=== PATIENT | female | born 1935 | race Caucasian/White ===

== ENCOUNTER 2017-04-25 07:56 | Emergency (ER) | payer MEDICARE, OTHER ==
[~2017-04-25 07:56] MED LIST: ALPR0.5T6 PO; ASPI-482 PO; BISO5TAB2 PO; CILO50TA10 PO; CRESTOR5 MG PO; CYAN10002 IJ; ERGO500027 PO; EZET10TA18 PO; FERR-36 PO; GABA-586 PO; OMEP20TA8 PO; TELM80TA PO; TRAM50TA PO; ZOLP12.52 PO
[2017-04-25] MEDS ORDERED: ONDANSETRON ODT 4 MG TAB.RAPDIS PO ONE (08:30)
[2017-04-25] MEDS ORDERED: cloNIDine HCL 0.1 MG TABLET PO ONE (08:30)
[2017-04-25 08:33] LABS: BASO % 1 % (0-3); EOS # 0.1 x10^3/uL (0.0-0.7); EOS % 1 % (0-3); HEMATOCRIT 42.6 % (36.0-47.0); HEMOGLOBIN 14.5 g/dL (12.0-15.5); LYMPH # 1.5 x10^3/uL (1.0-4.8); LYMPH % 15 % (24-48); MEAN CORPUSCULAR HEMOGLOBIN 33 pg (25-35); MEAN CORPUSCULAR HGB CONC 34 g/dL (31-37); MEAN CORPUSCULAR VOLUME 97 fL (79-100); MONO # 0.7 x10^3/uL (0.0-1.1); MONO % 7 % (0-9); NEUT # 7.8 x10^3uL (1.8-7.7); NEUT % 77 % (31-73); PLATELET COUNT 155 x10^3/uL (140-400); RED BLOOD COUNT 4.39 x10^6/uL (3.50-5.40); RED CELL DISTRIBUTION WIDTH 14.2 % (11.5-14.5)
[2017-04-25 08:41] LABS: ALBUMIN 3.4 g/dL (3.4-5.0); CALCIUM 9.5 mg/dL (8.5-10.1); CREATININE 1.7 mg/dL (0.6-1.0); GFR 28.8; POTASSIUM 4.9 mmol/L (3.5-5.1); TOTAL BILIRUBIN 0.3 mg/dL (0.2-1.0); TOTAL PROTEIN 6.8 g/dL (6.4-8.2)
--- NOTE | 2017-04-25 08:41 | RAD ---
Head CT without contrast History:Headache, dizziness, hypertension Technique: Noncontrast CT imaging was acquired of the head. RS Compliance Statement: One or more of the following individualized dose reduction techniques were utilized for this examination: 1. Automated exposure control 2. Adjustment of the mA and/or kV according to patient size 3. Use of iterative reconstruction technique Comparison: 06/05/2016 Findings: Ventricular size is stable, within normal limits. There is mild supratentorial involutional change as seen previously. There is patchy mild ill-defined low-density of the supratentorial parenchyma bilaterally as seen previously.There is no significant intra-axial mass-effect, midline shift, or abnormal extra-axial fluid collection. There is no evidence of acute parenchymal or extraaxial hemorrhage. The visualized paranasal sinuses and mastoid air cells are aerated. No significant osseous abnormality is identified. There is atherosclerotic calcification of the carotid siphons bilaterally, also left intradural vertebral artery. Impression: 1. No acute intracranial abnormality is identified.
[2017-04-25 09:02] LABS: BACTERIA,URINE 0 /HPF (0-FEW); BILIRUBIN,URINE NEG (NEG); CLARITY,URINE CLEAR; COLOR,URINE YELLOW; GLUCOSE,URINE NEG (NEG); NITRITE,URINE NEG (NEG); RBC,URINE RARE /HPF (0-2); SQUAMOUS EPITHELIAL CELL,UR MOD /LPF; UROBILINOGEN,URINE 0.2 mg/dL (0.2 mg/dL); WBC,URINE RARE /HPF (0-4)
[2017-04-25] MEDS ORDERED: hydrALAZINE 20 MG/ML VIAL. ONE (09:11)
[2017-04-25] MEDS ORDERED: hydrALAZINE 20 MG/ML VIAL. IV ONE (09:15)
[2017-04-25 09:33] VITALS: BP 128/55
--- NOTE | 2017-04-25 09:45 | ED.ADGEN ---
Past History Past Medical History: CAD, CHF, Diabetes, Hypertension, [place], Vascular Disease, Other Past Surgical History: Cholecystectomy, Hysterectomy, Pacemaker, Other Smoking: Cigarettes, Greater than 1 pack/day Alcohol Use: None Drug Use: None Adult General Chief Complaint Chief Complaint Headache, nausea HPI HPI Patient is a 88-year-old female with history of hypertension, CVA, CAD and congestive heart failure presents with mild posterior headache and nausea. Symptoms began yesterday. Patient states her blood pressure is elevated 200/110 yesterday. Patient recently prescribed hydralazine at [facility] , but states she has not taken the medication due to concerns that they may impact her kidneys. Patient has been compliant with her remaining cardiac and blood pressure medications. Patient denies blurred vision, impaired speech, neck pain, extremity weakness or loss of sensation. Denies chest pain palpitations shortness of air. No abdominal pain. No dysuria. No fever chills or sweats. No other acute symptoms or complaints. Patient is a current smoker. Review of Systems Review of Systems ROS as per HPI. All other ROS are negative. All other systems were reviewed and found to be within normal limits, except as documented in this note. Current Medications Current Medications Current Medications Medications (Trade) Dose Ordered Sig/Alanna Start Time Stop Time Status Last Admin Dose Admin Clonidine HCl (Catapres) 0.1 mg 1X ONCE 04/25/17 08:30 04/25/17 08:31 DC 04/25/17 08:43 0.1 MG Hydralazine HCl (Apresoline) 20 mg 1X ONCE 04/25/17 09:15 04/25/17 09:16 DC 04/25/17 09:13 20 MG Ondansetron HCl (Zofran Odt) 4 mg 1X ONCE 04/25/17 08:30 04/25/17 08:31 DC 04/25/17 08:43 4 MG Allergies Allergies Allergies Coded Allergies Type Severity Reaction Last Updated Verified codeine Allergy Intermediate rash 05/27/16 Yes Physical Exam Physical Exam Constitutional: Well developed, well nourished, no acute distress, non-toxic appearance. [] HENT: Normocephalic, atraumatic, bilateral external ears normal, oropharynx moist, no oral exudates, nose normal. [] Eyes: PERRLA, EOMI, conjunctiva normal, no discharge. [] Neck: Normal range of motion, no tenderness, supple, no stridor. [] Cardiovascular:Heart rate regular rhythm, no murmur [] Lungs & Thorax: Respirations nonlabored, mildly diminished bilaterally. Otherwise clear.[] Abdomen: Bowel sounds normal, soft, no tenderness, no masses, no pulsatile masses. [] Skin: Warm, dry, no erythema, no rash. [] Back: No tenderness. [] Extremities: No tenderness, no cyanosis, no clubbing, ROM intact, no edema. [] Neurologic: Alert and oriented X 3, normal motor function, normal sensory function, no focal deficits noted. [] Psychologic: Affect normal, judgement normal, mood normal. [] Current Patient Data Vital Signs Vital Signs Date Time Temp Pulse Resp B/P (MAP) Pulse Ox O2 Delivery O2 Flow Rate FiO2 04/25/17 09:13 66 230/98 04/25/17 08:00 98.5 20 95 Room Air Lab Results Laboratory Tests Test 04/25/17 08:09 04/25/17 08:40 White Blood Count 10.0 x10^3/uL (4.0-11.0) Red Blood Count 4.39 x10^6/uL (3.50-5.40) Hemoglobin 14.5 g/dL (12.0-15.5) Hematocrit 42.6 % (36.0-47.0) Mean Corpuscular Volume 97 fL (79-100) Mean Corpuscular Hemoglobin 33 pg (25-35) Mean Corpuscular Hemoglobin Concent 34 g/dL (31-37) Red Cell Distribution Width 14.2 % (11.5-14.5) Platelet Count 155 x10^3/uL (140-400) Neutrophils (%) (Auto) 77 % (31-73) H Lymphocytes (%) (Auto) 15 % (24-48) L Monocytes (%) (Auto) 7 % (0-9) Eosinophils (%) (Auto) 1 % (0-3) Basophils (%) (Auto) 1 % (0-3) Neutrophils # (Auto) 7.8 x10^3uL (1.8-7.7) H Lymphocytes # (Auto) 1.5 x10^3/uL (1.0-4.8) Monocytes # (Auto) 0.7 x10^3/uL (0.0-1.1) Eosinophils # (Auto) 0.1 x10^3/uL (0.0-0.7) Basophils # (Auto) 0.0 x10^3/uL (0.0-0.2) Sodium Level 145 mmol/L (136-145) Potassium Level 4.9 mmol/L (3.5-5.1) Chloride Level 106 mmol/L (98-107) Carbon Dioxide Level 29 mmol/L (21-32) Anion Gap 10 (6-14) Blood Urea Nitrogen 31 mg/dL (7-20) H Creatinine 1.7 mg/dL (0.6-1.0) H Estimated GFR (Cockcroft-Gault) 28.8 BUN/Creatinine Ratio 18 (6-20) Glucose Level 175 mg/dL (70-99) H Calcium Level 9.5 mg/dL (8.5-10.1) Total Bilirubin 0.3 mg/dL (0.2-1.0) Aspartate Amino Transferase (AST) 15 U/L (15-37) Alanine Aminotransferase (ALT) 20 U/L (14-59) Alkaline Phosphatase 82 U/L (46-116) Creatine Kinase 32 U/L (26-192) Troponin I Quantitative < 0.017 ng/mL (0-0.055) Total Protein 6.8 g/dL (6.4-8.2) Albumin 3.4 g/dL (3.4-5.0) Albumin/Globulin Ratio 1.0 (1.0-1.7) Urine Collection Type Unknown Urine Color Yellow Urine Clarity Clear Urine pH 6.0 Urine Specific [place] 1.025 Urine Protein >100 mg/dl (NEG-TRACE) Urine Glucose (UA) Neg mg/dL (NEG) Urine Ketones (Stick) Neg mg/dL (NEG) Urine Blood Neg (NEG) Urine Nitrite Neg (NEG) Urine Bilirubin Neg (NEG) Urine Urobilinogen Dipstick 0.2 mg/dL (0.2 mg/dL) Urine Leukocyte Esterase Neg (NEG) Urine RBC Rare /HPF (0-2) Urine WBC Rare /HPF (0-4) Urine Squamous Epithelial Cells Mod /LPF Urine Bacteria 0 /HPF (0-FEW) Urine Mucus Slight /LPF EKG EKG [EKG: Normal sinus rhythm, occasional ectopy, no acute ST-T wave changes.] Radiology/Procedures Radiology/Procedures [CT head: No acute intracranial abnormality per radiology report] Course & Med Decision Making Course & Med Decision Making Pertinent Labs and Imaging studies reviewed. (See chart for details) [Patient's blood pressure headache and nausea resolved with treatment. Patient instructed to resume blood pressure medication as previously prescribed upon returning home. Patient to take next dose of blood pressure medication with exception of hydralazine at noon. Patient further instructed to follow-up with her PCP in 1-2 days for further blood pressure management.] Final Impression Final Impression [#1 accelerated hypertension #2 headache] Problems: Dragon Disclaimer Dragon Disclaimer This electronic medical record was generated, in whole or in part, using a voice recognition dictation system. BRITTANEY RON DO Apr 25, 2017 09:45
[2017-04-25] MEDS ORDERED: IOHEXOL 300 MG/ML 75 ML VIAL. IV ONE (10:30)
--- NOTE | 2017-04-25 17:02 | EKG ---
[address] [address] Test Date: 2017-04-25 Test Time: 08:21:03 Pat Name: CHLOÉ CARDOSO Department: Room: Gender: F [employer]: ARUN : 1935 Requested By: BRITTANEY RON Order Number: [id number] Reading MD: Measurements Intervals Stamps Rate: 70 P: 33 ID: [id number] QRS: -39 QRSD: 128 T: -19 QT: 406 QTc: 441 Interpretive Statements SINUS RHYTHM ABNORMAL LEFT AXIS DEVIATION LEFT ANTERIOR FASCICULAR BLOCK RIGHT BUNDLE BRANCH BLOCK BIFASCICULAR BLOCK QRS(T) CONTOUR ABNORMALITY CONSIDER ANTEROSEPTAL MYOCARDIAL DAMAGE ABNORMAL ECG RI6.01 Unconfirmed report No previous ECG available for comparison
== END 2017-04-25 09:55 | disposition home or self-care (01) ==
LOC: ER 07:56
DX: I11.0 Hypertensive heart disease with heart failure (principal); R51 Headache; I50.9 Heart failure, unspecified; I25.10 Atherosclerotic heart disease of native coronary artery without angina pectoris; E11.9 Type 2 diabetes mellitus without complications; I25.2 Old myocardial infarction; F17.210 Nicotine dependence, cigarettes, uncomplicated; Z86.73 Personal history of transient ischemic attack (TIA), and cerebral infarction without residual deficits; Z95.0 Presence of cardiac pacemaker; Z88.5 Allergy status to narcotic agent
CPT/HCPCS: 36415; 70450; 80053; 81001; 82550; 84484; 85025; 93005; 96374; 99285; J0360; Q0162

== ENCOUNTER 2017-05-13 13:49 | Inpatient (IN) | payer MEDICARE, OTHER ==
[~2017-05-13] VITALS: Ht 160 cm; Wt 79.6 kg
--- NOTE | 2017-05-13 14:41 | PHYS DOC ---
Past History Past Medical History: CAD, CHF, Diabetes, Hypertension, [place], Vascular Disease, Other Past Surgical History: Cholecystectomy, Hysterectomy, Pacemaker, Other Smoking: Cigarettes, Greater than 1 pack/day Alcohol Use: None Drug Use: None Adult General Chief Complaint Chief Complaint: MECHANICAL FALL HPI HPI Patient is a 82 year old female who presents with complaint of bilateral foot and ankle pain. Patient states that she suffered a fall earlier today. Patient states that she has been having trouble with numbness and burning in her bilateral lower extremities. The patient has history of type 2 diabetes mellitus and history of neuropathy. Patient is currently on gabapentin therapy at home and states she has not missed any doses. The patient states that it felt like her feet suddenly gave out on her and caused her to fall. Patient states that she struck the right side of her head on the bathroom door as she fell. Patient denies any loss of consciousness. Patient states that she has had history of intracranial hemorrhage due to a prior fall. Patient denies any chest pain or abdominal pain. The patient states that she did hit her left forearm but states that she has a small skin tear and does not feel that she seriously injured her forearm. Patient's main concern are her ankles and feet. Patient states that there has been swelling in this area and she is concerned she may have broken something. Review of Systems Review of Systems Constitutional: Denies fever or chills [] Eyes: Denies change in visual acuity, redness, or eye pain [] HENT: Denies nasal congestion or sore throat [] Respiratory: Denies cough or shortness of breath [] Cardiovascular: Denies chest pain or edema[] GI: Denies abdominal pain, nausea, vomiting, bloody stools or diarrhea [] : Denies dysuria or hematuria [] Musculoskeletal: Bilateral ankle and foot pain[] Integument: Denies rash or skin lesions [] Neurologic: Chronic numbness to bilateral lower extremities, denies headache[] All other systems were reviewed and found to be within normal limits, except as documented in this note. Allergies Allergies Allergies Coded Allergies Type Severity Reaction Last Updated Verified codeine Allergy Intermediate rash 05/27/16 Yes Physical Exam Physical Exam Constitutional: Alert, obese, afebrile, appears mild to moderate discomfort.[] HENT: Normocephalic, atraumatic, bilateral external ears normal, oropharynx moist, no oral exudates, nose normal. [] Eyes: PERRLA, EOMI, conjunctiva normal, no discharge. [] Neck: Normal range of motion, no tenderness, supple, no stridor. [] Cardiovascular:Heart rate regular rhythm, no murmur [] Lungs & Thorax: Bilateral breath sounds clear to auscultation [] Abdomen: Bowel sounds normal, soft, no tenderness, no masses, no pulsatile masses. [] Skin: Warm, dry, no erythema, no rash. [] Back: No tenderness, no CVA tenderness. [] Extremities: 1 cm skin tear to the dorsum of left forearm, mild soft tissue swelling to bilateral ankles near bilateral malleoli, no bony tenderness, pain with dorsiflexion bilaterally.[] Neurologic: Alert and oriented X 3, normal motor function, normal sensory function, no focal deficits noted. [] Current Patient Data Vital Signs Vital Signs Date Time Temp Pulse Resp B/P (MAP) Pulse Ox O2 Delivery O2 Flow Rate FiO2 05/13/17 13:49 98.4 70 18 98 Room Air EKG EKG Not performed[] Radiology/Procedures Radiology/[place] [address] IMAGING REPORT Signed PATIENT: CHLOÉ CARDOSO ACCOUNT: [id number] : 1935 LOCATION: ER AGE: 82 SEX: F EXAM [id number] STATUS: REG ER ORD. PHYSICIAN: СЕРГЕЙ MONTIEL MD REASON: fall, bilateral ankle pain PROCEDURE: ANKLE BILAT 3V; FOOT BILAT 3V Bilateral feet, 6 views, 05/13/2017: History: Fall, pain There is patchy bony demineralization. There are mild degenerative changes at the left first MTP joint and at the midfoot level. There is a minimal hallux valgus deformity. No acute fracture or dislocation is identified. On the right, there is mild hallux valgus deformity with degenerative change at the first MTP joint. There are mild degenerative changes at the midfoot level. No right foot fracture or dislocation is identified. There is generalized subcutaneous edema about both feet and ankles. IMPRESSION: 1. Moderate degenerative changes as described above. 2. No acute bony abnormality is detected. 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 There is a recent fracture of the distal right fibula along the superior aspect of the medial malleolus, without significant displacement at the fracture site. No other fracture or dislocation is identified. There is moderate diffuse soft tissue swelling about both ankles. IMPRESSION: Acute fracture of the right lateral malleolus. DICTATED AND SIGNED BY: DINO JOSE MD DATE: 05/13/17 4435 CC: СЕРГЕЙ MONTIEL MD; [place]ABEL [place] ~ [place] [address] IMAGING REPORT Signed PATIENT: CHLOÉ CARDOSO ACCOUNT: [id number] : 1935 LOCATION: ER AGE: 82 SEX: F EXAM STATUS: REG ER ORD. PHYSICIAN: СЕРГЕЙ MONTIEL MD REASON: fall, head injury PROCEDURE: CT HEAD WO CONTRAST CT of the head without contrast, 05/13/2017: History: Fall, head injury Comparison is made to a study from 04/25/2017. There is mild cerebral atrophy. The ventricles are within normal limits in size. There is no shift of the midline structures. There is no evidence of acute intracranial hemorrhage or mass effect. Minimal faint deep white matter lucencies are present bilaterally compatible with chronic ischemic change. There is mild scalp swelling in the right frontal region. No underlying bony abnormality is detected. IMPRESSION: 1. Chronic findings as described above. 2. No acute intracranial abnormality is detected. PQRS Compliance Statement: One or more of the following individualized dose reduction techniques were utilized for this examination: 1. Automated exposure control 2. Adjustment of the mA and/or kV according to patient size 3. Use of iterative reconstruction technique DICTATED AND SIGNED BY: DINO JOSE MD DATE: 05/13/17 0094 CC: СЕРГЕЙ MONTIEL MD; ISABEL CERRATO ~ [] Course & Med Decision Making Course & Med Decision Making Pertinent Labs and Imaging studies reviewed. (See chart for details) The patient's head CT was negative for acute intracranial injury. Patient's x- ray showed a right fibula fracture. The patient has chronic neuropathy and is of advanced age with difficulty in ambulation which will be complicated by the patient's current injury. Though the injury is likely nonsurgical, the patient will still have difficulty being able to care for herself in her current state. After discussion with the patient and patient's family, we have agreed that admission to the hospital would be appropriate at this time. I spoke with Dr. Coker who accepted care patient in hospital. Dragon Disclaimer Dragon Disclaimer This electronic medical record was generated, in whole or in part, using a voice recognition dictation system. Departure Departure: Impression: Primary Impression: Right fibular fracture Additional Impressions: Neuropathy Unable to ambulate Disposition: ADMITTED INPATIENT Admitting Physician: Kimberly Coker Condition: STABLE Referrals: ISABEL CERRATO (PCP) Problem Qualifiers Primary Impression: Right fibular fracture Encounter type: initial encounter Fibula location: lateral malleolus Fracture type: closed Fracture alignment: nondisplaced Qualified Codes: S82.64XA - Nondisplaced fracture of lateral malleolus of right fibula, initial encounter for closed fracture СЕРГЕЙ MONTIEL MD May 13, 2017 14:41
[2017-05-13] MEDS ORDERED: HYDROcodone/APAP 7.5/325MG 1 TAB TABLET PO ONE (15:00)
--- NOTE | 2017-05-13 15:01 | RAD ---
CT of the head without contrast, 05/13/2017: History: Fall, head injury Comparison is made to a study from 04/25/2017. There is mild cerebral atrophy. The ventricles are within normal limits in size. There is no shift of the midline structures. There is no evidence of acute intracranial hemorrhage or mass effect. Minimal faint deep white matter lucencies are present bilaterally compatible with chronic ischemic change. There is mild scalp swelling in the right frontal region. No underlying bony abnormality is detected. IMPRESSION: 1. Chronic findings as described above. 2. No acute intracranial abnormality is detected. PQRS Compliance Statement: One or more of the following individualized dose reduction techniques were utilized for this examination: 1. Automated exposure control 2. Adjustment of the mA and/or kV according to patient size 3. Use of iterative reconstruction technique
--- NOTE | 2017-05-13 15:16 | RAD ---
Bilateral feet, 6 views, 05/13/2017: History: Fall, pain There is patchy bony demineralization. There are mild degenerative changes at the left first MTP joint and at the midfoot level. There is a minimal hallux valgus deformity. No acute fracture or dislocation is identified. On the right, there is mild hallux valgus deformity with degenerative change at the first MTP joint. There are mild degenerative changes at the midfoot level. No right foot fracture or dislocation is identified. There is generalized subcutaneous edema about both feet and ankles. IMPRESSION: 1. Moderate degenerative changes as described above. 2. No acute bony abnormality is detected. 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 There is a recent fracture of the distal right fibula along the superior aspect of the medial malleolus, without significant displacement at the fracture site. No other fracture or dislocation is identified. There is moderate diffuse soft tissue swelling about both ankles. IMPRESSION: Acute fracture of the right lateral malleolus.
[2017-05-13] MEDS ORDERED: ACETAMINOPHEN 325 MG TABLET PO PRN (16:00)
[2017-05-13] MEDS ORDERED: IV NORMAL SALINE 1,000ML 1,000 ML IV SCH (16:00)
[2017-05-13] MEDS ORDERED: ONDANSETRON PF 4 MG/2 ML VIAL. IV PRN (16:00)
[2017-05-13 18:00] VITALS: BP 92/56
[2017-05-13] MEDS ORDERED: HYDR100T24 PO (19:52)
[2017-05-13] MEDS ORDERED: CHOL10003 PO (19:52)
[2017-05-13] MEDS ORDERED: INSU100I32 SQ (19:52)
[2017-05-13] MEDS ORDERED: CARV25TA2 PO (19:52)
[2017-05-13] MEDS ORDERED: VIT1TABL32 PO (19:52)
[2017-05-13] MEDS ORDERED: TELM40TA PO (19:52)
[2017-05-13] MEDS ORDERED: ZOLP5TAB PO (19:52)
[2017-05-13] MEDS ORDERED: OMEP40CA5 PO (19:52)
[2017-05-13 19:53] VITALS: BP 130/67
[2017-05-13] MEDS ORDERED: TRAJENTA PO (19:59)
[2017-05-13] MEDS: oxyCODONE/APAP 5/325 1 TAB TABLET PO PRN (20:48)
[2017-05-13] MEDS: ATORVASTATIN CALCIUM 20 MG TABLET PO SCH (20:48)
[2017-05-13] MEDS: GABAPENTIN 300 MG CAPSULE. PO SCH (20:49)
[2017-05-13] MEDS: CHOLECALCIFEROL (VITAMIN D3) 1,000 UNIT TABLET PO SCH (20:49)
[2017-05-13] MEDS: HEPARIN PF for SUB-Q USE 5,000 UNIT/0.5 ML VIAL. SQ SCH (20:53)
[2017-05-13] MEDS: INSULIN DETEMIR 300 UNITS/3 ML INSULN.PEN. SQ SCH (20:53)
[2017-05-13 22:45] VITALS: BP 145/56
[2017-05-14] MEDS: oxyCODONE/APAP 5/325 1 TAB TABLET PO PRN ×3 (02:58→21:31)
[2017-05-14 05:34] VITALS: BP 126/56
--- NOTE | 2017-05-14 06:38 | PDOC1 ---
History of Present Illness Reason for Visit: Ankle pain History of Present Illness Pt states she was in her usual state of health yesterday when she was walking through her house, and "all of a sudden" she says her "feet and ankles just snapped" and she fell to the floor. She reports she was hospitalized a year ago or so for frequent falls. She also states that she broke her left ankle several years ago. She lives alone. She had been planning to move in with her daughter at some point. She denies feeling dizzy. No chest pain or SOA. Denies fever, neck pain, lymphadenopathy, night sweats, weight loss, cough, abd pain, n/v, diarrhea, rashes, numbness, tingling, confusion, depression. Says she does have some weakness bilaterally. Denies excessive bleeding or bruising. NO dysuria. No blood in stool. Denies blurry vision. No sore throat or ear pain. Chief Complaint: MECHANICAL FALL Allergies: Coded Allergies: codeine (Verified Allergy, Intermediate, rash, 05/27/16) Past Medical History Cardiac: CAD, HTN GI: GERD Psych: Other (Insomnia) Endocrine: Diabetes Past Surgical History: No pertinent history Family History: No pertinent hx Past Social History Smoke: 1 pack per day Alcohol: none Drugs: None Lives: Alone Review of Systems Review Of Systems Fourteen system , review of systems has been reviewed. See HPI for pertinent positives and negative responses, other wilkins all other systems are negative, non pertinent or non contributory Allergies: Coded Allergies: codeine (Verified Allergy, Intermediate, rash, 05/27/16) Medications Current Medications Acetaminophen/ Hydrocodone Bitart (Lortab 7.5/325) 1 tab 1X ONCE PO Last administered on 05/13/17t 15:04; Start 05/13/17 at 15:00; Stop 05/13/17 at 15 :01; Status DC Ondansetron HCl (Zofran) 4 mg PRN Q4HRS PRN IV NAUSEA/VOMITING; Start at 16:00; Stop 05/14/17 at 15:59 Fentanyl Citrate (Fentanyl 2ml Vial) 50 mcg PRN Q2HR PRN IV PAIN; Start at 16:00; Stop 05/13/17 at 20:09; Status DC Sodium Chloride 1,000 ml @ 100 mls/hr Q10H IV Last administered on 05/13/17 16:26; Start 05/13/17 at 16:00; Stop 05/13/17 at 20:09; Status DC Acetaminophen (Tylenol) 650 mg PRN Q4HRS PRN PO FEVER; Start 05/13/17 at 16:00 ; Stop 05/14/17 at 15:59 Heparin Sodium (Porcine) 5,000 unit Q12HR SQ Last administered on 05/13/17 20 :53; Start 05/13/17 at 21:00 Nicotine (Nicoderm Cq 14mg) 1 patch DAILY TD ; Start 05/14/17 at 09:00 Oxycodone/ Acetaminophen (Percocet 5/325) 1 tab PRN Q6HRS PRN PO PAIN Last administered on 05/14/17 02:58; Start 05/13/17 at 20:15 Aspirin (Aspirin Enteric Coated) 81 mg DAILY PO ; Start 05/14/17 at 09:00 Vitamin D (Vitamin D3) 1,000 unit HS PO Last administered on 05/13/17 20:49; Start 05/13/17 at 21:00 EZETIMIBE (Zetia) 10 mg DAILY PO ; Start 05/14/17 at 09:00 Ferrous Sulfate (Feosol) 325 mg DAILY PO ; Start 05/14/17 at 09:00 Gabapentin (Neurontin) 300 mg BID PO Last administered on 05/13/17 20:49; Start 05/13/17 at 21:00 Multivitamins/ Minerals (I-Louisa) 1 tab DAILY PO ; Start 05/14/17 at 09:00 Carvedilol (Coreg) 25 mg BIDWMEALS PO ; Start 05/14/17 at 08:00 Hydralazine HCl (Apresoline) 100 mg TID PO Last administered on 05/13/17 20: 49; Start 05/13/17 at 21:00 Insulin Detemir (Levemir) 15 units QHS SQ Last administered on 05/13/17 20:53 ; Start 05/13/17 at 21:00 Pantoprazole Sodium (Protonix) 40 mg DAILYAC PO ; Start 05/14/17 at 07:30 Atorvastatin Calcium (Lipitor) 20 mg QHS PO Last administered on 05/13/17 20: 48; Start 05/13/17 at 21:00 Linagliptin (Tradjenta) 5 mg DAILY PO ; Start 05/14/17 at 09:00 Active Scripts Active Reported [Trajenta] 5 Mg PO DAILY LAST DOSE GIVEN: DATE: TIME: NEXT DOSE DUE: DATE: TIME: Arsh Medrano U-100 (Insulin Glargine,Hum.rec.anlog) 100 Unit/1 Ml Insuln.pen 15 Unit SQ HS LAST DOSE GIVEN: DATE: TIME: NEXT DOSE DUE: DATE: TIME: Ocuvite Tablet (Vit A,C & E/Lutein/Minerals) 1 Each Tablet 1 Each PO DAILY LAST DOSE GIVEN: DATE: TIME: NEXT DOSE DUE: DATE: TIME: Ambien (Zolpidem Tartrate) 5 Mg Tablet 1 Tab PO QHS LAST DOSE GIVEN: DATE: TIME: NEXT DOSE DUE: DATE: TIME: Vitamin D3 (Cholecalciferol (Vitamin D3)) 1,000 Unit Tablet 1 Tab PO HS LAST DOSE GIVEN: DATE: TIME: NEXT DOSE DUE: DATE: TIME: Hydralazine Hcl 100 Mg Tablet 1 Tab PO TID LAST DOSE GIVEN: DATE: TIME: NEXT DOSE DUE: DATE: TIME: Omeprazole 40 Mg Capsule.dr 1 Cap PO DAILY LAST DOSE GIVEN: DATE: TIME: NEXT DOSE DUE: DATE: TIME: Carvedilol 25 Mg Tablet 1 Tab PO BID LAST DOSE GIVEN: DATE: TIME: NEXT DOSE DUE: DATE: TIME: Micardis (Telmisartan) 40 Mg Tablet 1 Tab PO BID LAST DOSE GIVEN: DATE: TIME: NEXT DOSE DUE: DATE: TIME: Iron (Ferrous Sulfate) 325 Mg Tablet 325 Mg PO DAILY LAST DOSE GIVEN: DATE: TIME: NEXT DOSE DUE: DATE: TIME: Gabapentin 300 Mg Capsule 300 Mg PO BID LAST DOSE GIVEN: DATE: TIME: NEXT DOSE DUE: DATE: TIME: Crestor (Rosuvastatin Calcium) 5 Mg Tablet 5 Mg PO HS LAST DOSE GIVEN: DATE: TIME: NEXT DOSE DUE: DATE: TIME: Aspir 81 (Aspirin) 81 Mg Tablet.dr 81 Mg PO DAILY LAST DOSE GIVEN: DATE: TIME: NEXT DOSE DUE: DATE: TIME: Zetia (Ezetimibe) 10 Mg Tablet 10 Mg PO DAILY LAST DOSE GIVEN: DATE: TIME: NEXT DOSE DUE: DATE: TIME: Exam Vital Signs Vital Signs Date Time Temp Pulse Resp B/P (MAP) Pulse Ox O2 Delivery O2 Flow Rate FiO2 05/14/17 05:34 97.5 70 20 126/56 (79) 92 Room Air General Appearance: Alert, Oriented X3, Cooperative, No acute distress HEENT: Atraumatic, PERRLA, EOMI, Mucous membr. moist/pink, Other (Neck supple, full ROM, no JVD, no LAD) Respiratory: Clear to auscultation, Normal air movement Heart: Regular rate, Normal S1, Normal S2, No murmurs Abdominal: Normal bowel sounds, Soft, No tenderness, No hepatospenomegaly, No masses Extremities: Other (Trace bipedal edema. Anterolateral ankle ligaments are TTP bilaterally. Right ankle is in a rigid brace. ) Skin: No rashes Neuro: Normal speech, Strength at 5/5 X4 ext, Normal tone, Sensation intact, Cranial nerves 3-12 NL, Reflexes 2+ Psych/Mental Status: Mental status NL, Mood NL Assessment/Plan Assessment/Plan 1. Acute right distal fibular fracture, nondisplaced, with intractable pain: Continue PO pain meds. Non weight-bearing. PT/OT. Hopeful for rehab placement. 2. Generalized weakness and debility: Slow decline per pt. Likely to have great difficulty w/ initial rehab at home. Consult PT/OT. 3. DM: ACHS glucose checks. Cont home meds. 4. Tobaccoism: Nicotine patch. Encouraged cessation. 5. DVT proph: Heparin. 6. HTN: Hold Telmisartan while taking opioids, avoid hypotension. Continue other home meds. 7. Insomnia: Per nursing, pt did not seem sedated at all w/ pain meds. Pt unable to sleep all night. Will restart Zolpidem from home med list. 8. Disp: Plan for continued hospitalization while reviewing options for placement. Pt cannot walk at this point. COURSE Allergies Coded Allergies Type Severity Reaction Last Updated Verified codeine Allergy Intermediate rash 05/27/16 Yes Laboratory Tests Test 05/13/17 17:57 05/13/17 19:27 Glucose (Fingerstick) 138 mg/dL (70-99) 180 mg/dL (70-99) Current Medications Medications (Trade) Dose Ordered Sig/Alanna Route PRN Reason Start Time Stop Time Status Last Admin Dose Admin Acetaminophen/ Hydrocodone Bitart (Lortab 7.5/325) 1 tab 1X ONCE PO 05/13/17 15:00 05/13/17 15:01 DC 05/13/17 15:04 Ondansetron HCl (Zofran) 4 mg PRN Q4HRS PRN IV NAUSEA/VOMITING 05/13/17 16:00 05/14/17 15:59 Fentanyl Citrate (Fentanyl 2ml Vial) 50 mcg PRN Q2HR PRN IV PAIN 05/13/17 16:00 05/13/17 20:09 DC Sodium Chloride 1,000 ml @ 100 mls/hr Q10H IV 05/13/17 16:00 05/13/17 20:09 DC 05/13/17 16:26 Acetaminophen (Tylenol) 650 mg PRN Q4HRS PRN PO FEVER 05/13/17 16:00 05/14/17 15:59 Heparin Sodium (Porcine) 5,000 unit Q12HR SQ 05/13/17 21:00 05/13/17 20:53 Nicotine (Nicoderm Cq 14mg) 1 patch DAILY TD 05/14/17 09:00 Oxycodone/ Acetaminophen (Percocet 5/325) 1 tab PRN Q6HRS PRN PO PAIN 05/13/17 20:15 05/14/17 02:58 Aspirin (Aspirin Enteric Coated) 81 mg DAILY PO 05/14/17 09:00 Vitamin D (Vitamin D3) 1,000 unit HS PO 05/13/17 21:00 05/13/17 20:49 EZETIMIBE (Zetia) 10 mg DAILY PO 05/14/17 09:00 Ferrous Sulfate (Feosol) 325 mg DAILY PO 05/14/17 09:00 Gabapentin (Neurontin) 300 mg BID PO 05/13/17 21:00 05/13/17 20:49 Multivitamins/ Minerals (I-Louisa) 1 tab DAILY PO 05/14/17 09:00 Carvedilol (Coreg) 25 mg BIDWMEALS PO 05/14/17 08:00 Hydralazine HCl (Apresoline) 100 mg TID PO 05/13/17 21:00 05/13/17 20:49 Insulin Detemir (Levemir) 15 units QHS SQ 05/13/17 21:00 05/13/17 20:53 Pantoprazole Sodium (Protonix) 40 mg DAILYAC PO 05/14/17 07:30 Atorvastatin Calcium (Lipitor) 20 mg QHS PO 05/13/17 21:00 05/13/17 20:48 Linagliptin (Tradjenta) 5 mg DAILY PO 05/14/17 09:00 I & O 05/14/17 00:00 Intake Total 670 ml Output Total 200 ml Balance 470 ml O Vital Signs Date Time Temp Pulse Resp B/P (MAP) Pulse Ox O2 Delivery O2 Flow Rate FiO2 05/14/17 05:34 97.5 70 20 126/56 (79) 92 Room Air Bilateral feet, 6 views, 05/13/2017: History: Fall, pain There is patchy bony demineralization. There are mild degenerative changes at the left first MTP joint and at the midfoot level. There is a minimal hallux valgus deformity. No acute fracture or dislocation is identified. On the right, there is mild hallux valgus deformity with degenerative change at the first MTP joint. There are mild degenerative changes at the midfoot level. No right foot fracture or dislocation is identified. There is generalized subcutaneous edema about both feet and ankles. IMPRESSION: 1. Moderate degenerative changes as described above. 2. No acute bony abnormality is detected. 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 There is a recent fracture of the distal right fibula along the superior aspect of the medial malleolus, without significant displacement at the fracture site. No other fracture or dislocation is identified. There is moderate diffuse soft tissue swelling about both ankles. IMPRESSION: Acute fracture of the right lateral malleolus. CARINA LEMUS MD May 14, 2017 06:38
[2017-05-14 06:52] LABS: BASO # 0.1 x10^3/uL (0.0-0.2); BASO % 1 % (0-3); EOS # 0.1 x10^3/uL (0.0-0.7); EOS % 2 % (0-3); HEMATOCRIT 33.3 % (36.0-47.0); HEMOGLOBIN 11.4 g/dL (12.0-15.5); LYMPH # 1.1 x10^3/uL (1.0-4.8); LYMPH % 12 % (24-48); MEAN CORPUSCULAR HEMOGLOBIN 33 pg (25-35); MEAN CORPUSCULAR HGB CONC 34 g/dL (31-37); MEAN CORPUSCULAR VOLUME 97 fL (79-100); MONO # 0.7 x10^3/uL (0.0-1.1); MONO % 8 % (0-9); NEUT # 7.1 x10^3uL (1.8-7.7); NEUT % 78 % (31-73); PLATELET COUNT 127 x10^3/uL (140-400); RED BLOOD COUNT 3.43 x10^6/uL (3.50-5.40); RED CELL DISTRIBUTION WIDTH 14.2 % (11.5-14.5); WHITE BLOOD COUNT 9.1 x10^3/uL (4.0-11.0)
[2017-05-14] MEDS: LINAGLIPTIN 5 MG TABLET PO SCH (08:31)
[2017-05-14] MEDS: NICOTINE 14MG PATCH. TD SCH (08:31)
[2017-05-14] MEDS: FERROUS SULFATE 325 MG TABLET. PO SCH (08:31)
[2017-05-14] MEDS: EZETIMIBE 10 MG TABLET PO SCH (08:31)
[2017-05-14] MEDS: PANTOPRAZOLE 40 MG TABLET. PO SCH (08:33)
[2017-05-14] MEDS: MULTIVITAMIN I-VITE TABLET. PO SCH (08:33)
[2017-05-14] MEDS: CARVEDILOL 12.5 MG TABLET PO SCH ×2 (08:33→17:00)
[2017-05-14] MEDS: GABAPENTIN 300 MG CAPSULE. PO SCH ×2 (08:34→21:27)
[2017-05-14] MEDS: ASPIRIN ENTERIC COATED 81 MG TABLET.DR. PO SCH (08:34)
[2017-05-14] MEDS: HEPARIN PF for SUB-Q USE 5,000 UNIT/0.5 ML VIAL. SQ SCH ×2 (08:35→21:28)
[2017-05-14 10:59] VITALS: BP 106/52
[2017-05-14 14:21] VITALS: BP 106/48
[2017-05-14 19:52] VITALS: BP 102/50
[2017-05-14] MEDS: CHOLECALCIFEROL (VITAMIN D3) 1,000 UNIT TABLET PO SCH (21:27)
[2017-05-14] MEDS: ATORVASTATIN CALCIUM 20 MG TABLET PO SCH (21:27)
[2017-05-14] MEDS: ZOLPIDEM 5 MG TABLET. PO SCH (21:27)
[2017-05-14] MEDS: INSULIN DETEMIR 300 UNITS/3 ML INSULN.PEN. SQ SCH (21:31)
[2017-05-14 23:36] VITALS: BP 123/77
[2017-05-15 05:54] VITALS: BP 105/65
[2017-05-15] MEDS: HEPARIN PF for SUB-Q USE 5,000 UNIT/0.5 ML VIAL. SQ SCH ×2 (09:00→20:32)
[2017-05-15] MEDS: ASPIRIN ENTERIC COATED 81 MG TABLET.DR. PO SCH (09:09)
[2017-05-15] MEDS: GABAPENTIN 300 MG CAPSULE. PO SCH ×2 (09:10→20:31)
[2017-05-15] MEDS: EZETIMIBE 10 MG TABLET PO SCH (09:10)
[2017-05-15] MEDS: FERROUS SULFATE 325 MG TABLET. PO SCH (09:10)
[2017-05-15] MEDS: PANTOPRAZOLE 40 MG TABLET. PO SCH (09:10)
[2017-05-15] MEDS: MULTIVITAMIN I-VITE TABLET. PO SCH (09:10)
[2017-05-15] MEDS: LINAGLIPTIN 5 MG TABLET PO SCH (09:10)
[2017-05-15] MEDS: CARVEDILOL 12.5 MG TABLET PO SCH ×2 (09:11→17:00)
[2017-05-15] MEDS: NICOTINE 14MG PATCH. TD SCH (09:11)
[2017-05-15] MEDS: oxyCODONE/APAP 5/325 1 TAB TABLET PO PRN ×2 (09:25→20:31)
[2017-05-15] MEDS ORDERED: TELM40TA PO (09:41)
--- NOTE | 2017-05-15 10:50 | PDOC ---
PROGRESS NOTES Assessment 1. Acute right distal fibular fracture, nondisplaced, with intractable pain: Continue PO pain meds. Non weight-bearing. PT/OT. Hopeful for rehab placement Wednesday at [place] [facility]. 2. Generalized weakness and debility: Slow decline per pt. Likely to have great difficulty w/ initial rehab at home. Cont PT/OT. 3. DM: ACHS glucose checks. Cont home meds. 4. Tobaccoism: Nicotine patch. Encouraged cessation. 5. DVT proph: Heparin. 6. HTN: Hold Telmisartan while taking opioids, avoid hypotension. Continue other home meds. 7. Insomnia: Cont Zolpidem, pt tolerating well. 8. Disp: Plan for continued hospitalization while reviewing options for placement. Pt cannot walk without assistance at this point. Problems: Plan of Care: see other orders Subjective Pt feeling better. Ankle pain improving. Denies SOA, chest pain, fever, bleeding, CHI, or dizziness. Objective Vital Signs Date Time Temp Pulse Resp B/P (MAP) Pulse Ox O2 Delivery O2 Flow Rate FiO2 05/15/17 09:11 70 105/65 05/15/17 05:54 98.2 16 92 Room Air Intake and Output 05/15/17 07:00 Intake Total 760 ml Output Total 425 ml Balance 335 ml Intake Oral 760 ml Output Urine Total 425 ml # Voids 1 Abdomen: Soft, No tenderness Heart: Regular rate, Normal S1, Normal S2, No murmurs Extremities: Other (Right ankle w/ moderate swelling, in rigid brace. Left ankle mild TTP continues.) General: Alert, Oriented X3, Cooperative, No acute distress HEENT: PERRLA, EOMI Lungs: Clear to auscultation, Normal air movement Neck: Supple, No JVD Neuro: Cranial nerves 3-12 NL Psych/Mental Status: Mental status NL Skin: No rashes Review of Relevant I have reviewed the following items giuseppe (where applicable) has been applied. Labs Laboratory Tests Test 05/13/17 17:57 05/13/17 19:27 05/14/17 06:17 05/14/17 07:32 Glucose (Fingerstick) 138 mg/dL (70-99) 180 mg/dL (70-99) 92 mg/dL (70-99) White Blood Count 9.1 x10^3/uL (4.0-11.0) Red Blood Count 3.43 x10^6/uL (3.50-5.40) Hemoglobin 11.4 g/dL (12.0-15.5) Hematocrit 33.3 % (36.0-47.0) Mean Corpuscular Volume 97 fL (79-100) Mean Corpuscular Hemoglobin 33 pg (25-35) Mean Corpuscular Hemoglobin Concent 34 g/dL (31-37) Red Cell Distribution Width 14.2 % (11.5-14.5) Platelet Count 127 x10^3/uL (140-400) Neutrophils (%) (Auto) 78 % (31-73) Lymphocytes (%) (Auto) 12 % (24-48) Monocytes (%) (Auto) 8 % (0-9) Eosinophils (%) (Auto) 2 % (0-3) Basophils (%) (Auto) 1 % (0-3) Neutrophils # (Auto) 7.1 x10^3uL (1.8-7.7) Lymphocytes # (Auto) 1.1 x10^3/uL (1.0-4.8) Monocytes # (Auto) 0.7 x10^3/uL (0.0-1.1) Eosinophils # (Auto) 0.1 x10^3/uL (0.0-0.7) Basophils # (Auto) 0.1 x10^3/uL (0.0-0.2) Test 05/14/17 11:35 05/14/17 16:08 05/14/17 20:20 05/15/17 07:43 Glucose (Fingerstick) 124 mg/dL (70-99) 131 mg/dL (70-99) 151 mg/dL (70-99) 98 mg/dL (70-99) Medications Current Medications Acetaminophen/ Hydrocodone Bitart (Lortab 7.5/325) 1 tab 1X ONCE PO Last administered on 05/13/17t 15:04; Start 05/13/17 at 15:00; Stop 05/13/17 at 15 :01; Status DC Ondansetron HCl (Zofran) 4 mg PRN Q4HRS PRN IV NAUSEA/VOMITING; Start at 16:00; Stop 05/14/17 at 15:59; Status DC Fentanyl Citrate (Fentanyl 2ml Vial) 50 mcg PRN Q2HR PRN IV PAIN; Start at 16:00; Stop 05/13/17 at 20:09; Status DC Sodium Chloride 1,000 ml @ 100 mls/hr Q10H IV Last administered on 05/13/17 16:26; Start 05/13/17 at 16:00; Stop 05/13/17 at 20:09; Status DC Acetaminophen (Tylenol) 650 mg PRN Q4HRS PRN PO FEVER; Start 05/13/17 at 16:00 ; Stop 05/14/17 at 15:59; Status DC Heparin Sodium (Porcine) 5,000 unit Q12HR SQ Last administered on 05/15/17 09 :00; Start 05/13/17 at 21:00 Nicotine (Nicoderm Cq 14mg) 1 patch DAILY TD Last administered on 05/15/17 09 :11; Start 05/14/17 at 09:00 Oxycodone/ Acetaminophen (Percocet 5/325) 1 tab PRN Q6HRS PRN PO PAIN Last administered on 05/15/17 09:25; Start 05/13/17 at 20:15 Aspirin (Aspirin Enteric Coated) 81 mg DAILY PO Last administered on 09:09; Start 05/14/17 at 09:00 Vitamin D (Vitamin D3) 1,000 unit HS PO Last administered on 05/14/17 21:27; Start 05/13/17 at 21:00 EZETIMIBE (Zetia) 10 mg DAILY PO Last administered on 05/15/17 09:10; Start 05/14/17 at 09:00 Ferrous Sulfate (Feosol) 325 mg DAILY PO Last administered on 05/15/17 09:10 ; Start 05/14/17 at 09:00 Gabapentin (Neurontin) 300 mg BID PO Last administered on 05/15/17 09:10; Start 05/13/17 at 21:00 Multivitamins/ Minerals (I-Louisa) 1 tab DAILY PO Last administered on 09:10; Start 05/14/17 at 09:00 Carvedilol (Coreg) 25 mg BIDWMEALS PO Last administered on 05/15/17 09:11; Start 05/14/17 at 08:00 Hydralazine HCl (Apresoline) 100 mg TID PO Last administered on 05/15/17 09: 10; Start 05/13/17 at 21:00 Insulin Detemir (Levemir) 15 units QHS SQ Last administered on 05/14/17 21:31 ; Start 05/13/17 at 21:00 Pantoprazole Sodium (Protonix) 40 mg DAILYAC PO Last administered on 09:10; Start 05/14/17 at 07:30 Atorvastatin Calcium (Lipitor) 20 mg QHS PO Last administered on 05/14/17 21: 27; Start 05/13/17 at 21:00 Linagliptin (Tradjenta) 5 mg DAILY PO Last administered on 05/15/17 09:10; Start 05/14/17 at 09:00 Zolpidem Tartrate (Ambien) 5 mg QHS PO Last administered on 05/14/17 21:27; Start 05/14/17 at 21:00 Active Scripts Active Reported Micardis (Telmisartan) 40 Mg Tablet 1 Tab PO BID [Trajenta] 5 Mg PO DAILY LAST DOSE GIVEN: DATE: TIME: NEXT DOSE DUE: DATE: TIME: Dericaglar Kwikpen U-100 (Insulin Glargine,Hum.rec.anlog) 100 Unit/1 Ml Insuln.pen 15 Unit SQ HS LAST DOSE GIVEN: DATE: TIME: NEXT DOSE DUE: DATE: TIME: Ocuvite Tablet (Vit A,C & E/Lutein/Minerals) 1 Each Tablet 1 Each PO DAILY LAST DOSE GIVEN: DATE: TIME: NEXT DOSE DUE: DATE: TIME: Ambien (Zolpidem Tartrate) 5 Mg Tablet 1 Tab PO QHS LAST DOSE GIVEN: DATE: TIME: NEXT DOSE DUE: DATE: TIME: Vitamin D3 (Cholecalciferol (Vitamin D3)) 1,000 Unit Tablet 1 Tab PO HS LAST DOSE GIVEN: DATE: TIME: NEXT DOSE DUE: DATE: TIME: Hydralazine Hcl 100 Mg Tablet 1 Tab PO TID LAST DOSE GIVEN: DATE: TIME: NEXT DOSE DUE: DATE: TIME: Omeprazole 40 Mg Capsule.dr 1 Cap PO DAILY LAST DOSE GIVEN: DATE: TIME: NEXT DOSE DUE: DATE: TIME: Carvedilol 25 Mg Tablet 1 Tab PO BID LAST DOSE GIVEN: DATE: TIME: NEXT DOSE DUE: DATE: TIME: Micardis (Telmisartan) 40 Mg Tablet 1 Tab PO BID LAST DOSE GIVEN: DATE: TIME: NEXT DOSE DUE: DATE: TIME: Iron (Ferrous Sulfate) 325 Mg Tablet 325 Mg PO DAILY LAST DOSE GIVEN: DATE: TIME: NEXT DOSE DUE: DATE: TIME: Gabapentin 300 Mg Capsule 300 Mg PO BID LAST DOSE GIVEN: DATE: TIME: NEXT DOSE DUE: DATE: TIME: Crestor (Rosuvastatin Calcium) 5 Mg Tablet 5 Mg PO HS LAST DOSE GIVEN: DATE: TIME: NEXT DOSE DUE: DATE: TIME: Aspir 81 (Aspirin) 81 Mg Tablet.dr 81 Mg PO DAILY LAST DOSE GIVEN: DATE: TIME: NEXT DOSE DUE: DATE: TIME: Zetia (Ezetimibe) 10 Mg Tablet 10 Mg PO DAILY LAST DOSE GIVEN: DATE: TIME: NEXT DOSE DUE: DATE: TIME: Vitals/I & O Vital Sign - Last 24 Hours 05/14/17 05/14/17 05/14/17 05/14/17 10:59 11:26 12:53 14:00 Temp 97.8 Pulse 70 70 Resp 20 B/P (MAP) 106/52 (70) 106/48 Pulse Ox 92 92 92 O2 Delivery Room Air Room Air 05/14/17 05/14/17 05/14/17 05/14/17 14:21 17:00 19:15 19:52 Temp 97.7 98.2 Pulse 70 73 70 Resp 20 16 B/P (MAP) 106/48 (67) 133/56 102/50 (67) Pulse Ox 93 95 O2 Delivery Room Air Room Air Room Air 05/14/17 05/14/17 05/14/17 05/14/17 21:00 21:31 22:30 23:36 Temp 98.7 Pulse 70 69 Resp 18 18 16 B/P (MAP) 102/50 123/77 (92) Pulse Ox 93 O2 Delivery Room Air Room Air Room Air 05/15/17 05/15/17 05/15/17 05:54 09:10 09:11 Temp 98.2 Pulse 70 70 70 Resp 16 B/P (MAP) 105/65 (78) 105/65 105/65 Pulse Ox 92 O2 Delivery Room Air Intake and Output 05/14/17 05/14/17 05/15/17 15:00 23:00 07:00 Intake Total 360 ml 200 ml 200 ml Output Total 150 ml 275 ml Balance 360 ml 50 ml -75 ml CARINA LEMUS MD May 15, 2017 10:50
[2017-05-15 11:30] VITALS: BP 106/46
[2017-05-15 15:42] VITALS: BP 124/77
[2017-05-15 20:16] VITALS: BP 120/50
[2017-05-15] MEDS: ATORVASTATIN CALCIUM 20 MG TABLET PO SCH (20:30)
[2017-05-15] MEDS: ZOLPIDEM 5 MG TABLET. PO SCH (20:31)
[2017-05-15] MEDS: CHOLECALCIFEROL (VITAMIN D3) 1,000 UNIT TABLET PO SCH (20:31)
[2017-05-15] MEDS: INSULIN DETEMIR 300 UNITS/3 ML INSULN.PEN. SQ SCH (20:31)
[2017-05-16 05:49] VITALS: BP 110/60
[2017-05-16] MEDS: PANTOPRAZOLE 40 MG TABLET. PO SCH (08:38)
[2017-05-16] MEDS: NICOTINE 14MG PATCH. TD SCH (08:38)
[2017-05-16] MEDS: CARVEDILOL 12.5 MG TABLET PO SCH ×2 (08:38→16:56)
[2017-05-16] MEDS: EZETIMIBE 10 MG TABLET PO SCH (08:38)
[2017-05-16] MEDS: FERROUS SULFATE 325 MG TABLET. PO SCH (08:38)
[2017-05-16] MEDS: ASPIRIN ENTERIC COATED 81 MG TABLET.DR. PO SCH (08:38)
[2017-05-16] MEDS: GABAPENTIN 300 MG CAPSULE. PO SCH ×2 (08:38→21:07)
[2017-05-16] MEDS: LINAGLIPTIN 5 MG TABLET PO SCH (08:38)
[2017-05-16] MEDS: MULTIVITAMIN I-VITE TABLET. PO SCH (08:38)
[2017-05-16] MEDS: HEPARIN PF for SUB-Q USE 5,000 UNIT/0.5 ML VIAL. SQ SCH ×2 (08:54→21:08)
[2017-05-16 09:49] LABS: BASO # 0.1 x10^3/uL (0.0-0.2); BASO % 1 % (0-3); EOS # 0.1 x10^3/uL (0.0-0.7); EOS % 1 % (0-3); HEMATOCRIT 32.5 % (36.0-47.0); HEMOGLOBIN 10.8 g/dL (12.0-15.5); LYMPH % 14 % (24-48); MEAN CORPUSCULAR HEMOGLOBIN 33 pg (25-35); MEAN CORPUSCULAR HGB CONC 33 g/dL (31-37); MEAN CORPUSCULAR VOLUME 98 fL (79-100); MONO # 0.6 x10^3/uL (0.0-1.1); MONO % 8 % (0-9); NEUT # 5.7 x10^3uL (1.8-7.7); NEUT % 76 % (31-73); PLATELET COUNT 135 x10^3/uL (140-400); RED CELL DISTRIBUTION WIDTH 14.2 % (11.5-14.5); WHITE BLOOD COUNT 7.4 x10^3/uL (4.0-11.0)
[2017-05-16 10:04] LABS: CALCIUM 8.9 mg/dL (8.5-10.1); CREATININE 2.1 mg/dL (0.6-1.0); GFR 22.5
[2017-05-16] MEDS: oxyCODONE/APAP 5/325 1 TAB TABLET PO PRN (10:16)
[2017-05-16 10:39] VITALS: BP 144/69
--- NOTE | 2017-05-16 12:22 | PDOC ---
PROGRESS NOTES Assessment 1. Acute right distal fibular fracture, nondisplaced, with intractable pain: Continue PO pain meds. Non weight-bearing. PT/OT. Hopeful for rehab placement Wednesday at [facility]. 2. Generalized weakness and debility: Slow decline per pt. Likely to have great difficulty w/ initial rehab at home. Cont PT/OT. 3. DM: ACHS glucose checks. Cont home meds. 4. Tobaccoism: Nicotine patch. Encouraged cessation. 5. DVT proph: Heparin. 6. HTN: Hold Telmisartan while taking opioids, avoid hypotension. Continue other home meds. 7. Insomnia: Cont Zolpidem, pt tolerating well. 8. Disp: Plan for continued hospitalization while reviewing options for placement. Pt hopefully ready for d/c to [facility] tomorrow. 9. CKD, stage 3: Creat up to 2.1. K+ up to 5.0. Pt not on any meds that should cause that. I will repeat BMP in AM. Problems: Subjective Pt states she is feeling ok, but her ankles are still quite painful. Denies CP , SOA, palpitations, diarrhea, n/v, rash, fever, or dizziness. Objective Vital Signs Date Time Temp Pulse Resp B/P (MAP) Pulse Ox O2 Delivery O2 Flow Rate FiO2 05/16/17 10:39 98.0 70 144/69 (94) 95 Room Air 05/16/17 05:49 16 Intake and Output 05/16/17 07:00 Intake Total 150 ml Balance 150 ml Intake Oral 150 ml # Voids 6 Abdomen: Soft, No tenderness Heart: Regular rate, Normal S1, Normal S2, No murmurs Extremities: Other (Both ankles still TTP, right ankle still in rigid brace. Ami's negative bilaterally.) General: Alert, Oriented X3, Cooperative, No acute distress HEENT: PERRLA, EOMI, Mucous membr. moist/pink, Other (Both eyes w/ ecchymosis that was not present yesterday (black eyes), right worse than left. Pt says this happened last time she got a bump on her head, it "leaked down" to around her eyes. Pt denies any new symptoms.) Lungs: Clear to auscultation, Normal air movement Neck: No JVD, No LAD Neuro: Normal speech, Normal tone, Sensation intact, Cranial nerves 3-12 NL, Reflexes 2+ Psych/Mental Status: Mental status NL, Mood NL Skin: No rashes Review of Relevant I have reviewed the following items giuseppe (where applicable) has been applied. Labs Laboratory Tests Test 05/14/17 16:08 05/14/17 20:20 05/15/17 07:43 05/15/17 12:08 Glucose (Fingerstick) 131 mg/dL (70-99) 151 mg/dL (70-99) 98 mg/dL (70-99) 141 mg/dL (70-99) Test 05/15/17 16:37 05/15/17 19:42 05/16/17 07:44 05/16/17 09:31 Glucose (Fingerstick) 140 mg/dL (70-99) 157 mg/dL (70-99) 136 mg/dL (70-99) White Blood Count 7.4 x10^3/uL (4.0-11.0) Red Blood Count 3.30 x10^6/uL (3.50-5.40) Hemoglobin 10.8 g/dL (12.0-15.5) Hematocrit 32.5 % (36.0-47.0) Mean Corpuscular Volume 98 fL (79-100) Mean Corpuscular Hemoglobin 33 pg (25-35) Mean Corpuscular Hemoglobin Concent 33 g/dL (31-37) Red Cell Distribution Width 14.2 % (11.5-14.5) Platelet Count 135 x10^3/uL (140-400) Neutrophils (%) (Auto) 76 % (31-73) Lymphocytes (%) (Auto) 14 % (24-48) Monocytes (%) (Auto) 8 % (0-9) Eosinophils (%) (Auto) 1 % (0-3) Basophils (%) (Auto) 1 % (0-3) Neutrophils # (Auto) 5.7 x10^3uL (1.8-7.7) Lymphocytes # (Auto) 1.0 x10^3/uL (1.0-4.8) Monocytes # (Auto) 0.6 x10^3/uL (0.0-1.1) Eosinophils # (Auto) 0.1 x10^3/uL (0.0-0.7) Basophils # (Auto) 0.1 x10^3/uL (0.0-0.2) Sodium Level 141 mmol/L (136-145) Potassium Level 5.0 mmol/L (3.5-5.1) Chloride Level 106 mmol/L (98-107) Carbon Dioxide Level 28 mmol/L (21-32) Anion Gap 7 (6-14) Blood Urea Nitrogen 30 mg/dL (7-20) Creatinine 2.1 mg/dL (0.6-1.0) Estimated GFR (Cockcroft-Gault) 22.5 Glucose Level 154 mg/dL (70-99) Calcium Level 8.9 mg/dL (8.5-10.1) Test 05/16/17 11:26 Glucose (Fingerstick) 147 mg/dL (70-99) Medications Current Medications Acetaminophen/ Hydrocodone Bitart (Lortab 7.5/325) 1 tab 1X ONCE PO Last administered on 05/13/17 15:04; Start 05/13/17 at 15:00; Stop 05/13/17 at 15 :01; Status DC Ondansetron HCl (Zofran) 4 mg PRN Q4HRS PRN IV NAUSEA/VOMITING; Start at 16:00; Stop 05/14/17 at 15:59; Status DC Fentanyl Citrate (Fentanyl 2ml Vial) 50 mcg PRN Q2HR PRN IV PAIN; Start at 16:00; Stop 05/13/17 at 20:09; Status DC Sodium Chloride 1,000 ml @ 100 mls/hr Q10H IV Last administered on 05/13/17 16:26; Start 05/13/17 at 16:00; Stop 05/13/17 at 20:09; Status DC Acetaminophen (Tylenol) 650 mg PRN Q4HRS PRN PO FEVER; Start 05/13/17 at 16:00 ; Stop 05/14/17 at 15:59; Status DC Heparin Sodium (Porcine) 5,000 unit Q12HR SQ Last administered on 05/16/17 08 :54; Start 05/13/17 at 21:00 Nicotine (Nicoderm Cq 14mg) 1 patch DAILY TD Last administered on 05/16/17 08 :38; Start 05/14/17 at 09:00 Oxycodone/ Acetaminophen (Percocet 5/325) 1 tab PRN Q6HRS PRN PO PAIN Last administered on 05/16/17 10:16; Start 05/13/17 at 20:15 Aspirin (Aspirin Enteric Coated) 81 mg DAILY PO Last administered on 08:38; Start 05/14/17 at 09:00 Vitamin D (Vitamin D3) 1,000 unit HS PO Last administered on 05/15/17 20:31; Start 05/13/17 at 21:00 EZETIMIBE (Zetia) 10 mg DAILY PO Last administered on 05/16/17 08:38; Start 05/14/17 at 09:00 Ferrous Sulfate (Feosol) 325 mg DAILY PO Last administered on 05/16/17 08:38 ; Start 05/14/17 at 09:00 Gabapentin (Neurontin) 300 mg BID PO Last administered on 05/16/17 08:38; Start 05/13/17 at 21:00 Multivitamins/ Minerals (I-Louisa) 1 tab DAILY PO Last administered on 08:38; Start 05/14/17 at 09:00 Carvedilol (Coreg) 25 mg BIDWMEALS PO Last administered on 05/16/17 08:38; Start 05/14/17 at 08:00 Hydralazine HCl (Apresoline) 100 mg TID PO Last administered on 05/15/17 09: 10; Start 05/13/17 at 21:00 Insulin Detemir (Levemir) 15 units QHS SQ Last administered on 05/14/17 21:31 ; Start 05/13/17 at 21:00; Stop 05/15/17 at 14:30; Status DC Pantoprazole Sodium (Protonix) 40 mg DAILYAC PO Last administered on 08:38; Start 05/14/17 at 07:30 Atorvastatin Calcium (Lipitor) 20 mg QHS PO Last administered on 05/15/17 20: 30; Start 05/13/17 at 21:00 Linagliptin (Tradjenta) 5 mg DAILY PO Last administered on 05/16/17 08:38; Start 05/14/17 at 09:00 Zolpidem Tartrate (Ambien) 5 mg QHS PO Last administered on 05/15/17 20:31; Start 05/14/17 at 21:00 Insulin Detemir (Levemir) 15 units QHS SQ Last administered on 05/15/17 20:31 ; Start 05/15/17 at 14:30 Active Scripts Active Reported Micardis (Telmisartan) 40 Mg Tablet 1 Tab PO BID [Trajenta] 5 Mg PO DAILY LAST DOSE GIVEN: DATE: TIME: NEXT DOSE DUE: DATE: TIME: Arsh Woodwardpen U-100 (Insulin Glargine,Hum.rec.anlog) 100 Unit/1 Ml Insuln.pen 15 Unit SQ HS LAST DOSE GIVEN: DATE: TIME: NEXT DOSE DUE: DATE: TIME: Ocuvite Tablet (Vit A,C & E/Lutein/Minerals) 1 Each Tablet 1 Each PO DAILY LAST DOSE GIVEN: DATE: TIME: NEXT DOSE DUE: DATE: TIME: Ambien (Zolpidem Tartrate) 5 Mg Tablet 1 Tab PO QHS LAST DOSE GIVEN: DATE: TIME: NEXT DOSE DUE: DATE: TIME: Vitamin D3 (Cholecalciferol (Vitamin D3)) 1,000 Unit Tablet 1 Tab PO HS LAST DOSE GIVEN: DATE: TIME: NEXT DOSE DUE: DATE: TIME: Hydralazine Hcl 100 Mg Tablet 1 Tab PO TID LAST DOSE GIVEN: DATE: TIME: NEXT DOSE DUE: DATE: TIME: Omeprazole 40 Mg Capsule.dr 1 Cap PO DAILY LAST DOSE GIVEN: DATE: TIME: NEXT DOSE DUE: DATE: TIME: Carvedilol 25 Mg Tablet 1 Tab PO BID LAST DOSE GIVEN: DATE: TIME: NEXT DOSE DUE: DATE: TIME: Micardis (Telmisartan) 40 Mg Tablet 1 Tab PO BID LAST DOSE GIVEN: DATE: TIME: NEXT DOSE DUE: DATE: TIME: Iron (Ferrous Sulfate) 325 Mg Tablet 325 Mg PO DAILY LAST DOSE GIVEN: DATE: TIME: NEXT DOSE DUE: DATE: TIME: Gabapentin 300 Mg Capsule 300 Mg PO BID LAST DOSE GIVEN: DATE: TIME: NEXT DOSE DUE: DATE: TIME: Crestor (Rosuvastatin Calcium) 5 Mg Tablet 5 Mg PO HS LAST DOSE GIVEN: DATE: TIME: NEXT DOSE DUE: DATE: TIME: Aspir 81 (Aspirin) 81 Mg Tablet.dr 81 Mg PO DAILY LAST DOSE GIVEN: DATE: TIME: NEXT DOSE DUE: DATE: TIME: Zetia (Ezetimibe) 10 Mg Tablet 10 Mg PO DAILY LAST DOSE GIVEN: DATE: TIME: NEXT DOSE DUE: DATE: TIME: Vitals/I & O Vital Sign - Last 24 Hours 05/15/17 05/15/17 05/15/17 05/15/17 13:57 15:42 17:00 19:10 Temp 97.8 Pulse 70 70 70 Resp 20 B/P (MAP) 106/46 124/77 (93) 124/77 Pulse Ox 94 O2 Delivery Room Air Room Air 05/15/17 05/15/17 05/15/17 05/15/17 20:16 20:31 20:33 21:30 Temp 97.7 Pulse 71 71 Resp 16 18 18 B/P (MAP) 120/50 (73) 120/50 Pulse Ox 96 O2 Delivery Room Air Room Air Room Air 05/16/17 05/16/17 05/16/17 05/16/17 05:49 08:38 08:38 10:16 Temp 98.1 Pulse 70 70 70 Resp 16 B/P (MAP) 110/60 (77) 110/60 110/60 Pulse Ox 94 94 O2 Delivery Room Air Room Air 05/16/17 10:39 Temp 98.0 Pulse 70 B/P (MAP) 144/69 (94) Pulse Ox 95 O2 Delivery Room Air Intake and Output 05/15/17 05/15/17 05/16/17 15:00 23:00 07:00 Intake Total 150 ml Balance 150 ml CARINA LEMUS MD May 16, 2017 12:22
[2017-05-16 13:24] VITALS: BP 131/63
[2017-05-16 19:59] VITALS: BP 156/81
[2017-05-16] MEDS: ZOLPIDEM 5 MG TABLET. PO SCH (21:07)
[2017-05-16] MEDS: CHOLECALCIFEROL (VITAMIN D3) 1,000 UNIT TABLET PO SCH (21:07)
[2017-05-16] MEDS: ATORVASTATIN CALCIUM 20 MG TABLET PO SCH (21:07)
[2017-05-16] MEDS: INSULIN DETEMIR 300 UNITS/3 ML INSULN.PEN. SQ SCH (21:09)
[2017-05-17 05:44] VITALS: BP 113/64
[2017-05-17 06:28] LABS: CALCIUM 8.9 mg/dL (8.5-10.1); GFR 23.9; POTASSIUM 4.9 mmol/L (3.5-5.1)
[2017-05-17] MEDS: MULTIVITAMIN I-VITE TABLET. PO SCH (08:10)
[2017-05-17] MEDS: CARVEDILOL 12.5 MG TABLET PO SCH (08:11)
[2017-05-17] MEDS: EZETIMIBE 10 MG TABLET PO SCH (08:12)
[2017-05-17] MEDS: FERROUS SULFATE 325 MG TABLET. PO SCH (08:14)
[2017-05-17] MEDS: LINAGLIPTIN 5 MG TABLET PO SCH (08:14)
[2017-05-17] MEDS: PANTOPRAZOLE 40 MG TABLET. PO SCH (08:14)
[2017-05-17] MEDS: NICOTINE 14MG PATCH. TD SCH (08:14)
[2017-05-17] MEDS: ASPIRIN ENTERIC COATED 81 MG TABLET.DR. PO SCH (09:00)
[2017-05-17] MEDS: GABAPENTIN 300 MG CAPSULE. PO SCH (09:00)
[2017-05-17] MEDS: oxyCODONE/APAP 5/325 1 TAB TABLET PO PRN (11:02)
[2017-05-17] MEDS: HEPARIN PF for SUB-Q USE 5,000 UNIT/0.5 ML VIAL. SQ SCH (12:26)
[2017-05-17 15:35] VITALS: BP 109/62
--- NOTE | 2017-05-17 21:16 | DS ---
DATE OF DISCHARGE: 05/17/2017 HOSPITAL COURSE: The patient is an 82-year-old female patient, who was admitted with bilateral foot and ankle pain. She apparently has suffered a fall on the day of admission, has been having trouble with numbness and burning in her bilateral lower extremities. She is known to have type 2 diabetes mellitus with history of peripheral neuropathy for which she is on gabapentin. She stated that her feet suddenly gave out on her and caused her to fall. The patient states that she struck the right side of her head on the bathroom door as she fell, but denied any loss of consciousness. She stated that she had had a history of intracranial hemorrhage due to prior fall. However, she denied any chest pain, abdominal pain. Denied any dizziness, lightheadedness, or vertigo. She was evaluated in the Emergency Room and her x-ray of her right ankle showed that she has nondisplaced fracture of distal right fibula along the superior aspect of medial malleolus without significant displacement at the fracture site. No other fracture or dislocation is identified. There is moderate diffuse soft tissue swelling about both ankles. The patient was treated with an air stirrup and a decision was made to discharge her to [facility] to continue with pain management and physical therapy. PHYSICAL EXAMINATION: GENERAL: When I saw her today, she was resting, almost flat in bed, in no apparent distress. No pallor or jaundice. She is slightly pale, but no jaundice, cyanosis, or thyromegaly. No jugular venous distension. No lower limb edema. VITAL SIGNS: Her heart rate was 72, blood pressure 113/64, temperature was 97.8, respiratory rate was 16, and oxygen saturation was 93% on room air. HEAD, EYES, EARS, NOSE, AND THROAT: Normocephalic, atraumatic. NECK: Supple. HEART: Showed normal first and second heart sounds with no gallop, rub, or murmur. CHEST: Clear to auscultation. No crepitation or rhonchi. ABDOMEN: Distended, soft, nontender. No guarding or rigidity. No organomegaly. Her hernial orifice is intact. Bowel sounds normal. NEUROLOGIC: She is awake, alert, responding appropriately. All her cranial nerves intact. She moves extremities without difficulty. SKIN: She has bilateral raccoon eyes, more so on the right than left. IMAGING STUDIES: Her CT scan of the head showed mild cerebral atrophy. The ventricles are within normal limits in size. There is no shift of the midline structure. There is no evidence of acute intracranial hemorrhage or mass effect. Minimal faint deep white matter lucencies are present bilaterally compatible with chronic ischemic changes. There is mild scalp swelling in the right frontal region. No underlying bony abnormalities detected. LABORATORY DATA: Her lab work today showed a white cell count 7400, hemoglobin 11, hematocrit 33, MCV 98, and platelet count 235,000. Her chemistry showed a serum sodium 142, potassium 4.9, chloride 107, bicarbonate 28, anion gap of 7, BUN 32, creatinine 2, estimated GFR was 24 mL per minute. Her glucose 131 and calcium was 8.9. DISCHARGE MEDICATIONS: She will be discharged to [facility] to continue with aspirin 81 mg once a day, carvedilol 25 mg twice a day, cholecalciferol, vitamin D3 1000 international units once a day, Zetia 10 mg once a day, ferrous sulfate 325 mg once a day, gabapentin 300 mg twice a day, hydralazine 100 mg 3 times a day, Lantus insulin 15 units at bedtime, omeprazole 40 mg at bedtime, Crestor 5 mg at bedtime, Micardis 40 mg once a day, zolpidem 5 mg at bedtime, and Tradjenta 5 mg daily. FINAL DISCHARGE DIAGNOSES: 1. Fall with acute right distal nondisplaced fibular fracture. The patient is now nonweightbearing. 2. Generalized weakness and debility. 3. Type 2 diabetes mellitus. 4. Hypertension, seems to be well controlled. 5. Tobaccoism for which she is on nicotine patch. 5. Deep venous thrombosis prophylaxis. She is on heparin. 6. Insomnia for which she is on Ambien. FREYA MO MD DR: CARLOS/taco JOB#: [id number] / [id number]
== END 2017-05-17 15:25 | DRG 563 ==
LOC: ER 13:49 → 1 SOUTH 17:08
PROVIDERS: ADMIT Family Medicine; ATTEND Family Medicine
DX: S82.64XA Nondisplaced fracture of lateral malleolus of right fibula, initial encounter for closed fracture (principal); E11.22 Type 2 diabetes mellitus with diabetic chronic kidney disease; E11.42 Type 2 diabetes mellitus with diabetic polyneuropathy; I13.0 Hypertensive heart and chronic kidney disease with heart failure and stage 1 through stage 4 chronic kidney disease, or unspecified chronic kidney disease; I50.9 Heart failure, unspecified; W18.39XA Other fall on same level, initial encounter; F17.210 Nicotine dependence, cigarettes, uncomplicated; G47.00 Insomnia, unspecified; I25.10 Atherosclerotic heart disease of native coronary artery without angina pectoris; Z60.2 Problems related to living alone; K21.9 Gastro-esophageal reflux disease without esophagitis; N18.3 Chronic kidney disease, stage 3 (moderate); Z79.4 Long term (current) use of insulin; Y99.8 Other external cause status; Y93.89 Activity, other specified; Z90.710 Acquired absence of both cervix and uterus; Z88.8 Allergy status to other drugs, medicaments and biological substances; Z90.49 Acquired absence of other specified parts of digestive tract; I25.2 Old myocardial infarction; Y92.091 Bathroom in other non-institutional residence as the place of occurrence of the external cause
CPT/HCPCS: 36415; 70450; 73610; 73630; 80048; 82947; 85025; 99406; J1815; 97110; J7030

== ENCOUNTER → 2018-06-01 | Outpatient (CLI) | payer MEDICARE, OTHER ==
[~2018-06-01] MED LIST changes: +CARV25TA2 PO; +CHOL10003 PO; +HYDR100T24 PO; +INSU100I32 SQ; +OMEP40CA5 PO; +TELM40TA PO; +TRAJENTA PO; +VIT1TABL32 PO; +ZOLP5TAB PO
[2018-06-01 16:23] LABS: ALBUMIN 3.3 g/dL (3.4-5.0); CREATININE 1.9 mg/dL (0.6-1.0); GFR 25.2; MAGNESIUM 1.8 mg/dL (1.8-2.4); PHOSPHORUS 4.3 mg/dL (2.6-4.7)
[2018-06-01 19:25] LABS: BASO # 0.1 x10^3/uL (0.0-0.2); BASO % 1 % (0-3); EOS # 0.2 x10^3/uL (0.0-0.7); EOS % 2 % (0-3); HEMATOCRIT 38.5 % (36.0-47.0); HEMOGLOBIN 12.5 g/dL (12.0-15.5); LYMPH # 1.4 x10^3/uL (1.0-4.8); LYMPH % 15 % (24-48); MEAN CORPUSCULAR HEMOGLOBIN 31 pg (25-35); MEAN CORPUSCULAR HGB CONC 32 g/dL (31-37); MEAN CORPUSCULAR VOLUME 96 fL (79-100); MONO # 0.6 x10^3/uL (0.0-1.1); MONO % 6 % (0-9); NEUT # 6.8 x10^3uL (1.8-7.7); NEUT % 76 % (31-73); PLATELET COUNT 171 x10^3/uL (140-400); RED BLOOD COUNT 4.02 x10^6/uL (3.50-5.40); RED CELL DISTRIBUTION WIDTH 15.7 % (11.5-14.5)
[2018-06-02 02:10] LABS: MICRO CREAT RATIO 759.6 mg/g creat (0.0-30.0); MICROALB RD UR 360.8 ug/mL (Not Estab.)
[2018-06-02 12:13] LABS: PTH INTACT 69 pg/mL (15-65)
== END | disposition home or self-care (01) ==
LOC: LAB 14:04
DX: I13.10 Hypertensive heart and chronic kidney disease without heart failure, with stage 1 through stage 4 chronic kidney disease, or unspecified chronic kidney disease (principal); E11.22 Type 2 diabetes mellitus with diabetic chronic kidney disease; N18.4 Chronic kidney disease, stage 4 (severe); F41.8 Other specified anxiety disorders; E11.21 Type 2 diabetes mellitus with diabetic nephropathy; R80.1 Persistent proteinuria, unspecified; R53.83 Other fatigue; Z68.28 Body mass index [BMI] 28.0-28.9, adult
CPT/HCPCS: 36415; 80069; 82043; 82570; 83735; 83970; 84156; 85025

== ENCOUNTER → 2018-06-01 | Outpatient (CLI) | payer MEDICARE, OTHER ==
[2018-06-01 16:12] LABS: BASO # 0.1 x10^3/uL (0.0-0.2); BASO % 1 % (0-3); EOS # 0.2 x10^3/uL (0.0-0.7); EOS % 2 % (0-3); HEMATOCRIT 38.5 % (36.0-47.0); HEMOGLOBIN 12.5 g/dL (12.0-15.5); LYMPH # 1.4 x10^3/uL (1.0-4.8); LYMPH % 15 % (24-48); MEAN CORPUSCULAR HEMOGLOBIN 31 pg (25-35); MEAN CORPUSCULAR HGB CONC 32 g/dL (31-37); MEAN CORPUSCULAR VOLUME 95 fL (79-100); MONO # 0.6 x10^3/uL (0.0-1.1); MONO % 6 % (0-9); NEUT # 7.1 x10^3uL (1.8-7.7); NEUT % 76 % (31-73); PLATELET COUNT 170 x10^3/uL (140-400); RED BLOOD COUNT 4.04 x10^6/uL (3.50-5.40); RED CELL DISTRIBUTION WIDTH 15.9 % (11.5-14.5); WHITE BLOOD COUNT 9.3 x10^3/uL (4.0-11.0)
[2018-06-01 16:23] LABS: ALBUMIN 3.3 g/dL (3.4-5.0); CREATININE 1.9 mg/dL (0.6-1.0); GFR 25.2; TOTAL BILIRUBIN 0.4 mg/dL (0.2-1.0); TOTAL PROTEIN 6.6 g/dL (6.4-8.2)
[2018-06-02 02:10] LABS: HEMOGLOBIN A1C 5.8 % (4.8-5.6)
[2018-06-02 19:41] LABS: FREE T4 0.98 ng/dL (0.76-1.46)
[2018-06-02 20:26] LABS: THYROID STIM HORMONE (TSH) 2.313 uIU/mL (0.358-3.740)
== END | disposition home or self-care (01) ==
LOC: LAB 14:23
PROVIDERS: ATTEND Physician Assistant Medical
DX: E11.21 Type 2 diabetes mellitus with diabetic nephropathy (principal)
CPT/HCPCS: 36415; 80053; 80061; 83036; 84439; 84443; 84481; 85025

== ENCOUNTER → 2018-07-28 | Outpatient (CLI) | payer MEDICARE, OTHER ==
[2018-07-28 14:03] LABS: CALCIUM 9.6 mg/dL (8.5-10.1); CREATININE 2.4 mg/dL (0.6-1.0); GFR 19.3; POTASSIUM 5.4 mmol/L (3.5-5.1)
== END | disposition home or self-care (01) ==
LOC: LAB 13:21
PROVIDERS: ATTEND Internal Medicine Interventional Cardiology
DX: I13.10 Hypertensive heart and chronic kidney disease without heart failure, with stage 1 through stage 4 chronic kidney disease, or unspecified chronic kidney disease (principal); E11.22 Type 2 diabetes mellitus with diabetic chronic kidney disease; N18.4 Chronic kidney disease, stage 4 (severe)
CPT/HCPCS: 36415; 80048

== ENCOUNTER → 2018-08-09 | Outpatient (CLI) | payer MEDICARE, OTHER ==
[2018-08-09 15:16] LABS: BASO # 0.1 x10^3/uL (0.0-0.2); BASO % 1 % (0-3); EOS # 0.2 x10^3/uL (0.0-0.7); EOS % 2 % (0-3); HEMATOCRIT 35.1 % (36.0-47.0); HEMOGLOBIN 11.5 g/dL (12.0-15.5); LYMPH # 1.4 x10^3/uL (1.0-4.8); LYMPH % 17 % (24-48); MEAN CORPUSCULAR HEMOGLOBIN 32 pg (25-35); MEAN CORPUSCULAR HGB CONC 33 g/dL (31-37); MEAN CORPUSCULAR VOLUME 97 fL (79-100); MONO # 0.6 x10^3/uL (0.0-1.1); MONO % 7 % (0-9); NEUT # 6.1 x10^3uL (1.8-7.7); NEUT % 74 % (31-73); PLATELET COUNT 169 x10^3/uL (140-400); RED BLOOD COUNT 3.64 x10^6/uL (3.50-5.40); RED CELL DISTRIBUTION WIDTH 14.5 % (11.5-14.5); WHITE BLOOD COUNT 8.3 x10^3/uL (4.0-11.0)
[2018-08-09 15:35] LABS: ALBUMIN 3.2 g/dL (3.4-5.0); CALCIUM 9.2 mg/dL (8.5-10.1); GFR 23.8; POTASSIUM 4.2 mmol/L (3.5-5.1); TOTAL BILIRUBIN 0.4 mg/dL (0.2-1.0); TOTAL PROTEIN 6.5 g/dL (6.4-8.2)
[2018-08-10 06:13] LABS: HEMOGLOBIN A1C 5.6 % (4.8-5.6)
== END | disposition home or self-care (01) ==
LOC: SPEC 14:48
PROVIDERS: ATTEND Physician Assistant Medical
DX: E11.9 Type 2 diabetes mellitus without complications (principal)
CPT/HCPCS: 36415; 80048; 80053; 83036; 85025

== ENCOUNTER → 2018-08-09 | Outpatient (CLI) | payer MEDICARE, OTHER ==
[2018-08-09 15:38] LABS: CALCIUM 9.2 mg/dL (8.5-10.1); GFR 23.8; POTASSIUM 4.2 mmol/L (3.5-5.1)
== END | disposition home or self-care (01) ==
LOC: LAB 14:06
PROVIDERS: ATTEND Nurse Practitioner Adult Health
DX: E87.5 Hyperkalemia (principal)
CPT/HCPCS: 36415; 80048

== ENCOUNTER → 2018-09-13 | Outpatient (CLI) | payer MEDICARE, OTHER ==
[2018-09-13 13:29] LABS: ALBUMIN 3.3 g/dL (3.4-5.0); CALCIUM 9.1 mg/dL (8.5-10.1); CREATININE 2.7 mg/dL (0.6-1.0); GFR 16.8; PHOSPHORUS 5.2 mg/dL (2.6-4.7); POTASSIUM 4.5 mmol/L (3.5-5.1)
== END | disposition home or self-care (01) ==
LOC: LAB 12:51
PROVIDERS: ATTEND Internal Medicine Nephrology
DX: I13.0 Hypertensive heart and chronic kidney disease with heart failure and stage 1 through stage 4 chronic kidney disease, or unspecified chronic kidney disease (principal); E11.22 Type 2 diabetes mellitus with diabetic chronic kidney disease; N18.4 Chronic kidney disease, stage 4 (severe); I50.9 Heart failure, unspecified; E11.21 Type 2 diabetes mellitus with diabetic nephropathy; R80.1 Persistent proteinuria, unspecified
CPT/HCPCS: 36415; 80069

== ENCOUNTER → 2018-10-19 | Outpatient (CLI) | payer MEDICARE, OTHER ==
[2018-10-19 15:08] LABS: ALBUMIN 3.3 g/dL (3.4-5.0); CALCIUM 9.2 mg/dL (8.5-10.1); GFR 23.8; PHOSPHORUS 4.3 mg/dL (2.6-4.7); POTASSIUM 4.2 mmol/L (3.5-5.1)
== END | disposition home or self-care (01) ==
LOC: LAB 14:12
PROVIDERS: ATTEND Nurse Practitioner Adult Health
DX: I12.9 Hypertensive chronic kidney disease with stage 1 through stage 4 chronic kidney disease, or unspecified chronic kidney disease (principal); N18.4 Chronic kidney disease, stage 4 (severe); E11.21 Type 2 diabetes mellitus with diabetic nephropathy; R80.1 Persistent proteinuria, unspecified; Z68.26 Body mass index [BMI] 26.0-26.9, adult
CPT/HCPCS: 36415; 80069

== ENCOUNTER → 2018-12-13 | Outpatient (CLI) | payer MEDICARE, OTHER ==
[2018-12-13 13:52] LABS: HEMATOCRIT 34.5 % (36.0-47.0)
[2018-12-13 14:02] LABS: ALBUMIN 2.8 g/dL (3.4-5.0); CALCIUM 9.4 mg/dL (8.5-10.1); GFR 23.8; PHOSPHORUS 4.5 mg/dL (2.6-4.7)
[2018-12-14 06:07] LABS: MICRO CREAT RATIO 297.9 mg/g creat (0.0-30.0); MICROALB RD UR 256.2 ug/mL (Not Estab.)
[2018-12-14 11:09] LABS: CALCIUM PTH 8.7 mg/dL (8.7-10.3); CREATININE PTH 1.91 mg/dL (0.57-1.00); PTH INTACT 71 pg/mL (15-65)
== END | disposition home or self-care (01) ==
LOC: LAB 12:54
PROVIDERS: ATTEND Nurse Practitioner Adult Health
DX: E11.21 Type 2 diabetes mellitus with diabetic nephropathy (principal); E11.22 Type 2 diabetes mellitus with diabetic chronic kidney disease; I12.9 Hypertensive chronic kidney disease with stage 1 through stage 4 chronic kidney disease, or unspecified chronic kidney disease; N18.4 Chronic kidney disease, stage 4 (severe); R80.1 Persistent proteinuria, unspecified; Z68.26 Body mass index [BMI] 26.0-26.9, adult
CPT/HCPCS: 36415; 80069; 82043; 82570; 82728; 83540; 83550; 83970; 84156; 85014; 85018

== ENCOUNTER → 2019-01-06 | Outpatient (CLI) | payer MEDICARE, OTHER ==
--- NOTE | 2019-01-06 15:06 | RAD ---
EXAM: Chest, 2 views; thoracic spine, 3 views; lumbar spine, 5 views. HISTORY: Pain. COMPARISON: 06/05/2016. FINDINGS: Chest: 2 views of the chest are obtained. There is no infiltrate, pleural effusion or pneumothorax. There is a prominent cardiac silhouette. There is a cardiac pacemaker with leads in expected position. There is hyperinflation due to respiratory effort or emphysema. There is aortic atherosclerosis. Thoracic spine: 3 views of the thoracic spine are obtained. There is multilevel degenerative endplate remodeling. There is a mild chronic appearing compression fracture of T12. There is a mild chronic appearing superior endplate depression with Schmorl's node at L1. There are few additional smaller endplate Schmorl's nodes within the thoracic spine. There is cervical spinal fusion instrumentation. Lumbar spine: 5 views lumbar spine are obtained. There is minimal levoscoliosis centered at the thoracolumbar junction. There is grade 1 anterolisthesis of L4 and L5 and minimal retrolisthesis of L5 on S1. There is degenerative endplate remodeling with osteophytic ptosis and facet arthropathy predominantly at L4-L5 and L5-S1. There is also vacuum phenomenon at these levels. There is a chronic mild superior endplate patient at L1 and chronic mild compression fracture at T12. There is aortic atherosclerosis. There are bilateral iliac artery stents. There are calcifications and clips. IMPRESSION: 1. No acute pulmonary finding. 2. Multilevel degenerative change throughout the thoracic and lumbar spine, primarily at L4-S1. 3. Chronic appearing mild compression deformities at T12 and L1. 4. Mild scoliosis. 5. Grade 1 anterolisthesis of L4 on L5. Electronically signed by: Malena Elliott MD (01/06/2019 3:03 PM) [place] [id number]
== END | disposition home or self-care (01) ==
LOC: DXRAD 14:22
PROVIDERS: ATTEND Physician Assistant Medical
DX: M47.817 Spondylosis without myelopathy or radiculopathy, lumbosacral region (principal); M47.814 Spondylosis without myelopathy or radiculopathy, thoracic region; M41.80 Other forms of scoliosis, site unspecified; M43.16 Spondylolisthesis, lumbar region; M48.54XA Collapsed vertebra, not elsewhere classified, thoracic region, initial encounter for fracture; M51.46 Schmorl's nodes, lumbar region; M46.87 Other specified inflammatory spondylopathies, lumbosacral region; I70.0 Atherosclerosis of aorta; I70.8 Atherosclerosis of other arteries; Z95.5 Presence of coronary angioplasty implant and graft; Z95.0 Presence of cardiac pacemaker
CPT/HCPCS: 71046; 72072; 72110

== ENCOUNTER → 2019-05-03 | Outpatient (CLI) | payer MEDICARE, OTHER ==
[~2019-05-03] MED LIST changes: -BISO5TAB2 PO; +BISO5TAB8 PO; -EZET10TA18 PO; +EZET10TA20 PO; +OMEP40CA45 PO; -OMEP40CA5 PO
[2019-05-03 11:43] LABS: HEMATOCRIT 37.9 % (36.0-47.0); HEMOGLOBIN 12.2 g/dL (12.0-15.5)
[2019-05-03 12:06] LABS: ALBUMIN 3.1 g/dL (3.4-5.0); CALCIUM 8.9 mg/dL (8.5-10.1); CREATININE 1.8 mg/dL (0.6-1.0); GFR 26.8; PHOSPHORUS 4.1 mg/dL (2.6-4.7); POTASSIUM 4.3 mmol/L (3.5-5.1)
[2019-05-03 18:07] LABS: CREATININE PTH 1.86 mg/dL (0.57-1.00); PTH INTACT 74 pg/mL (15-65)
== END | disposition home or self-care (01) ==
LOC: LAB 11:05
PROVIDERS: ATTEND Nurse Practitioner Adult Health
DX: E11.22 Type 2 diabetes mellitus with diabetic chronic kidney disease (principal); E11.21 Type 2 diabetes mellitus with diabetic nephropathy; I12.9 Hypertensive chronic kidney disease with stage 1 through stage 4 chronic kidney disease, or unspecified chronic kidney disease; N18.4 Chronic kidney disease, stage 4 (severe); R80.1 Persistent proteinuria, unspecified
CPT/HCPCS: 36415; 80069; 82570; 83970; 84156; 85014; 85018

== ENCOUNTER → 2020-01-17 | Outpatient (CLI) | payer MEDICARE, OTHER ==
[2020-01-17 13:00] LABS: ALBUMIN 3.1 g/dL (3.4-5.0); CREATININE 2.2 mg/dL (0.6-1.0); GFR 21.3; PHOSPHORUS 4.4 mg/dL (2.6-4.7); POTASSIUM 4.7 mmol/L (3.5-5.1)
[2020-01-18 04:07] LABS: CREATININE PTH 1.72 mg/dL (0.57-1.00); MICROALB RD UR 560.6 ug/mL (Not Estab.); PTH INTACT 113 pg/mL (15-65)
[2020-01-18 12:55] LABS: CREATININE,RANDOM URINE 57.9 mg/dL (Not Establ.)
== END | disposition home or self-care (01) ==
LOC: LAB 11:55
PROVIDERS: ATTEND Nurse Practitioner Adult Health
DX: E11.21 Type 2 diabetes mellitus with diabetic nephropathy (principal); I12.9 Hypertensive chronic kidney disease with stage 1 through stage 4 chronic kidney disease, or unspecified chronic kidney disease; N18.4 Chronic kidney disease, stage 4 (severe); R80.1 Persistent proteinuria, unspecified; E11.22 Type 2 diabetes mellitus with diabetic chronic kidney disease; Z79.4 Long term (current) use of insulin
CPT/HCPCS: 36415; 80069; 82043; 82570; 82728; 83540; 83550; 83970; 84156; 85014; 85018

== ENCOUNTER → 2020-07-19 | Outpatient (CLI) | payer MEDICARE, OTHER ==
[2020-07-19 14:29] LABS: HEMOGLOBIN 11.5 g/dL (12.0-15.5)
[2020-07-19 14:45] LABS: ALBUMIN 2.9 g/dL (3.4-5.0); CALCIUM 8.7 mg/dL (8.5-10.1); CREATININE 1.7 mg/dL (0.6-1.0); GFR 28.6; PHOSPHORUS 4.6 mg/dL (2.6-4.7); POTASSIUM 4.3 mmol/L (3.5-5.1)
[2020-07-20 07:12] LABS: CALCIUM PTH 8.7 mg/dL (8.7-10.3); CREATININE PTH 1.59 mg/dL (0.57-1.00); PTH INTACT 106 pg/mL (15-65)
[2020-07-20 11:35] LABS: CREATININE,RANDOM URINE 61.5 mg/dL (Not Establ.)
[2020-07-20 16:11] LABS: MICROALB RD UR 458.7 ug/mL (Not Estab.)
== END ==
LOC: LAB 13:10
PROVIDERS: ATTEND Internal Medicine Interventional Cardiology
DX: I12.9 Hypertensive chronic kidney disease with stage 1 through stage 4 chronic kidney disease, or unspecified chronic kidney disease (principal); N18.4 Chronic kidney disease, stage 4 (severe); E11.21 Type 2 diabetes mellitus with diabetic nephropathy; E11.22 Type 2 diabetes mellitus with diabetic chronic kidney disease; R80.1 Persistent proteinuria, unspecified; Z79.4 Long term (current) use of insulin
CPT/HCPCS: 36415; 80069; 82043; 82570; 83970; 84156; 85014; 85018

== ENCOUNTER → 2020-08-15 | Outpatient (CLI) | payer MEDICARE, OTHER ==
[2020-08-15 13:00] LABS: CALCIUM 8.9 mg/dL (8.5-10.1); GFR 23.7; MAGNESIUM 2.3 mg/dL (1.8-2.4); POTASSIUM 4.2 mmol/L (3.5-5.1)
[2020-08-15 13:11] LABS: BASO # 0.1 x10^3/uL (0.0-0.2); BASO % 1 % (0-3); EOS # 0.2 x10^3/uL (0.0-0.7); EOS % 3 % (0-3); HEMATOCRIT 35.8 % (36.0-47.0); HEMOGLOBIN 11.5 g/dL (12.0-15.5); LYMPH # 1.3 x10^3/uL (1.0-4.8); LYMPH % 16 % (24-48); MEAN CORPUSCULAR HEMOGLOBIN 32 pg (25-35); MEAN CORPUSCULAR HGB CONC 32 g/dL (31-37); MEAN CORPUSCULAR VOLUME 99 fL (79-100); MONO # 0.7 x10^3/uL (0.0-1.1); MONO % 8 % (0-9); NEUT # 6.1 x10^3uL (1.8-7.7); NEUT % 73 % (31-73); PLATELET COUNT 173 x10^3/uL (140-400); RED BLOOD COUNT 3.61 x10^6/uL (3.50-5.40); RED CELL DISTRIBUTION WIDTH 14.2 % (11.5-14.5); WHITE BLOOD COUNT 8.4 x10^3/uL (4.0-11.0)
== END ==
LOC: LAB 12:19
DX: I49.5 Sick sinus syndrome (principal); Z95.9 Presence of cardiac and vascular implant and graft, unspecified
CPT/HCPCS: 36415; 80048; 83735; 85025

== ENCOUNTER → 2020-08-27 | Outpatient (CLI) | payer MEDICARE, OTHER ==
[2020-08-27 13:39] LABS: HEMATOCRIT 36.7 % (36.0-47.0); HEMOGLOBIN 11.9 g/dL (12.0-15.5)
[2020-08-27 13:44] LABS: ALBUMIN 3.1 g/dL (3.4-5.0); CALCIUM 8.9 mg/dL (8.5-10.1); CREATININE 1.6 mg/dL (0.6-1.0); GFR 30.6; PHOSPHORUS 4.2 mg/dL (2.6-4.7); POTASSIUM 5.3 mmol/L (3.5-5.1)
[2020-08-28 01:09] LABS: MICROALB RD UR 308.8 ug/mL (Not Estab.)
[2020-08-28 20:08] LABS: CREATININE,RANDOM URINE 24.7 mg/dL (Not Establ.)
== END ==
LOC: LAB 12:46
PROVIDERS: ATTEND Nurse Practitioner Adult Health
DX: I12.9 Hypertensive chronic kidney disease with stage 1 through stage 4 chronic kidney disease, or unspecified chronic kidney disease (principal); N18.4 Chronic kidney disease, stage 4 (severe); R80.1 Persistent proteinuria, unspecified; Z79.4 Long term (current) use of insulin
CPT/HCPCS: 80069; 82043; 82570; 83970; 84156; 85014; 85018

== ENCOUNTER → 2021-02-06 | Outpatient (CLI) | payer MEDICARE, OTHER ==
[~2021-02-06] MED LIST changes: -OMEP40CA45 PO; +OMEP40CA7 PO
[2021-02-06 12:39] LABS: HEMATOCRIT 34.7 % (36.0-47.0); HEMOGLOBIN 11.2 g/dL (12.0-15.5)
[2021-02-06 12:58] LABS: ALBUMIN 3.1 g/dL (3.4-5.0); CALCIUM 8.7 mg/dL (8.5-10.1); CREATININE 2.1 mg/dL (0.6-1.0); GFR 22.4; PHOSPHORUS 5.1 mg/dL (2.6-4.7); POTASSIUM 4.4 mmol/L (3.5-5.1)
[2021-02-07 15:42] LABS: CREATININE,RANDOM URINE 64.2 mg/dL (Not Establ.)
[2021-02-07 21:06] LABS: MICROALB RD UR 369.8 ug/mL (Not Estab.)
[2021-02-07 22:07] LABS: CREATININE PTH 1.95 mg/dL (0.57-1.00); PTH INTACT 48 pg/mL (15-65)
== END ==
LOC: LAB 11:08
PROVIDERS: ATTEND Nurse Practitioner Adult Health
DX: N18.4 Chronic kidney disease, stage 4 (severe) (principal); E78.5 Hyperlipidemia, unspecified
CPT/HCPCS: 80069; 82043; 82306; 82570; 83970; 84156; 85014; 85018

== ENCOUNTER → 2021-07-16 | Outpatient (CLI) | payer MEDICARE, OTHER ==
[2021-07-16 11:41] LABS: ALBUMIN 3.5 g/dL (3.4-5.0); ALBUMIN/GLOBULIN RATIO 1.1 (1.0-1.7); CALCIUM 8.7 mg/dL (8.5-10.1); GFR 23.6; PHOSPHORUS 4.1 mg/dL (2.6-4.7); TOTAL BILIRUBIN 0.4 mg/dL (0.2-1.0); TOTAL PROTEIN 6.7 g/dL (6.4-8.2)
[2021-07-16 15:51] LABS: CHOLESTEROL/HDL RATIO 2.7
== END ==
LOC: LAB 10:33
PROVIDERS: ATTEND Internal Medicine Nephrology
DX: I12.9 Hypertensive chronic kidney disease with stage 1 through stage 4 chronic kidney disease, or unspecified chronic kidney disease (principal); E11.21 Type 2 diabetes mellitus with diabetic nephropathy; N18.4 Chronic kidney disease, stage 4 (severe); E78.5 Hyperlipidemia, unspecified; R80.1 Persistent proteinuria, unspecified; Z79.4 Long term (current) use of insulin
CPT/HCPCS: 36415; 80053; 80061; 80069

== ENCOUNTER 2021-08-20 10:47 | Emergency (ER) | payer MEDICARE, OTHER ==
[~2021-08-20] VITALS: Ht 162.6 cm; Wt 81.0 kg
[2021-08-20] MEDS ORDERED: IV NORMAL SALINE 1,000ML 1,000 ML IV SCH (11:00)
--- NOTE | 2021-08-20 11:21 | RAD ---
AP chest. HISTORY: Nausea, vomiting AP view was taken of the chest. There is a left pacemaker with atrial and ventricular pacing leads wi thout change from an old study from December 2018. Heart is upper normal in size. There is no pleural e ffusion. There is linear scarring at the right costophrenic angle. There are no acute infiltrates. Th ere is arthritis and rotator cuff degeneration in the right shoulder. IMPRESSION: 1. No acute infiltrates or acute chest disease. Electronically signed by: Naman Vann MD (08/20/2021 11:19 AM) [facility]
--- NOTE | 2021-08-20 11:23 | RAD ---
PQRS Compliance Statement: One or more of the following individualized dose reduction techniques were utilized for this examinat ion: 1. Automated exposure control 2. Adjustment of the mA and/or kV according to patient size 3. Use of iterative reconstruction technique CT head without contrast 08/20/2021 11:14 AM INDICATION: Facial numbness COMPARISON: CT head 05/13/2017 TECHNIQUE: Multiple axial CT images of the head were obtained from skull base through the vertex with out intravenous contrast. FINDINGS: Head: Ventricles, sulci and basal cisterns are prominent compatible with mild generalized cerebral volume l oss. Low-attenuation in the periventricular white matter is suggestive of chronic small vessel ischemic ch anges. There is no hydrocephalus. Bishop-white matter differentiation is normal. There is no acute intr acranial hemorrhage. There is no mass, mass effect or midline shift. Posterior fossa is normal in nora earance. Visualized portions of the orbits are normal with exception of bilateral lens replacement. Paranasal sinuses are well aerated. Mastoid air cells are well aerated. Scalp and calvaria are normal. IMPRESSION: No acute intracranial hemorrhage. Mild generalized cerebral volume loss. Low-attenuation in the periventricular white matter is suggestive of chronic small vessel ischemic ch anges. Electronically signed by: Olga Housre MD (08/20/2021 11:21 AM) [id number]
--- NOTE | 2021-08-20 12:09 | EKG ---
[address] [address] Test Date: 2021-08-20 Test Time: 11:52:07 Pat Name: CHLOÉ CARDOSO Department: Room: Gender: F [employer] Teacher: ARUN : 1935 Requested By: ISABEL HUGHES Order Number: [id number] Reading MD: Messi Storm MD Measurements Intervals [place] Rate: 70 P: ME: QRS: 269 QRSD: 124 T: -24 QT: 426 QTc: 463 Interpretive Statements Probable sinus rhythm Right bundle branch block Electronically Signed On 08-22-2021 17:44:05 CDT by Messi Storm MD
--- NOTE | 2021-08-20 12:16 | PHYS DOC ---
Past History Past Medical History: CAD, CHF, Diabetes, Hypertension, [place], Vascular Disease, Other Past Surgical History: Cholecystectomy, Hysterectomy, Pacemaker, Other Smoking: Cigarettes, Greater than 1 pack/day Alcohol Use: None Drug Use: None General Adult EDM: Chief Complaint: FACE PROBLEM HPI: HPI: 86 yo F PMH diabetes, hypertension and hyperlipidemia, presents the ED with complaints of slurred speech, tingling in the face, and sweating, states symptoms started at 9am. Only current sx is "head swimming." States her granddaughter checked her glucose and it was 67. Blood pressure was 90/42. Reports she does not take any short acting insulin. Takes 20 units of long- acting insulin every night. Has not missed her insulin dosage eating. States she ate for crackers and drink coffee and juice. No prior h/o cva. I reviewed med list in room, patient is not on any anticoagulants. Denies any recent URI, fluid losses, fever or malaise. Reports she did not hit her head or lose consciousness. Review of Systems: Review of Systems: Constitutional: Denies fever or chills Eyes: Denies change in visual acuity HENT: Denies nasal congestion or sore throat Respiratory: Denies cough or shortness of breath Cardiovascular: Denies chest pain or edema GI: Denies bloody stools or diarrhea : Denies dysuria or hematuria Musculoskeletal: Denies back pain or joint pain Integument: Denies rash or blistering lesions Neurologic: Denies headache, focal weakness or sensory changes Endocrine: Denies polyuria or polydipsia Lymphatic: Denies swollen glands Psychiatric: Denies depression or anxiety Current Medications: Current Meds: Current Medications Medications (Trade) Dose Ordered Sig/Alanna Start Time Stop Time Status Last Admin Dose Admin Sodium Chloride 1,000 ml @ 1,000 mls/hr Q1H 08/20/21 11:00 08/20/21 11:59 DC Allergies: Allergies: Allergies Coded Allergies Type Severity Reaction Last Updated Verified codeine Allergy Intermediate rash 05/27/16 Yes Physical Exam: PE: Constitutional: Well developed, well nourished, no acute distress, non-toxic appearance. HENT: Normocephalic, atraumatic, dry mucous membranes Eyes: EOMI, conjunctiva normal, no discharge. Neck: Normal range of motion, supple, Cardiovascular: S1/2 present, regular rhythm Lungs & Thorax: Speaking in full sentences-normal, no aphasia or dysarthria, bilateral equal chest rise, no tachypnea or increased work of breathing Abdomen: soft, no tenderness, Skin: Warm, dry, no erythema, no rash. [] Extremities: No tenderness, no cyanosis, Neurologic: CN 2- 12 intact, no facial droop, Alert and oriented X 3, normal motor function, normal sensory function, no focal deficits noted. [] Psychologic: Affect normal, judgement normal, mood normal. [] Current Patient Data: Vital Signs: Vital Signs Date Time Temp Pulse Resp B/P (MAP) Pulse Ox O2 Delivery O2 Flow Rate FiO2 08/20/21 11:00 97.5 110 18 101/48 (65) 94 Room Air EKG: EK bpm, extreme right axis deviation, QRS 124, QTc 463, T wave inversion 3 and aVF, no ST elevation or ST depression Radiology/Procedures: Radiology/Procedures: IMAGING REPORT Signed PATIENT: CHLOÉ CARDOSO ACCOUNT: [id number] : 1935 LOCATION: ER AGE: 86 SEX: F EXAM STATUS: REG ER ORD. PHYSICIAN: ISABEL HUGHES DO REASON: nause/vomiting PROCEDURE: PORTABLE CHEST 1V AP chest. HISTORY: Nausea, vomiting AP view was taken of the chest. There is a left pacemaker with atrial and ventricular pacing leads without change from an old study from December 2018. Heart is upper normal in size. There is no pleural effusion. There is linear scarring at the right costophrenic angle. There are no acute infiltrates. 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 IMPRESSION: 1. No acute infiltrates or acute chest disease. Electronically signed by: Naman Vann MD (08/20/2021 11:19 AM) [facility] DICTATED AND SIGNED BY: NAMAN VANN MD DATE: 08/20/21 1118 CC: ISABEL CERRATO; ISABEL HUGHES DO ~ IMAGING REPORT Signed PATIENT: CHLOÉ CARDOSO ACCOUNT: [id number] : 1935 LOCATION: ER AGE: 86 SEX: F EXAM STATUS: REG ER ORD. PHYSICIAN: ISABEL HUGHES DO REASON: facial numbness PROCEDURE: CT HEAD WO CONTRAST PQRS Compliance Statement: One or more of the following individualized dose reduction techniques were utilized for this examination: 1. Automated exposure control 2. Adjustment of the mA and/or kV according to patient size 3. Use of iterative reconstruction technique CT head without contrast 08/20/2021 11:14 AM INDICATION: Facial numbness COMPARISON: CT head 05/13/2017 TECHNIQUE: Multiple axial CT images of the head were obtained from skull base through the vertex without intravenous contrast. FINDINGS: Head: Ventricles, sulci and basal cisterns are prominent compatible with mild generalized cerebral volume loss. Low-attenuation in the periventricular white matter is suggestive of chronic small vessel ischemic changes. There is no hydrocephalus. Bishop-white matter differentiation is normal. There is no acute intracranial hemorrhage. There is no mass, mass effect or midline shift. Posterior fossa is normal in appearance. Visualized portions of the orbits are normal with exception of bilateral lens replacement. Paranasal sinuses are well aerated. Mastoid air cells are well aerated. Scalp and calvaria are normal. IMPRESSION: No acute intracranial hemorrhage. Mild generalized cerebral volume loss. Low-attenuation in the periventricular white matter is suggestive of chronic small vessel ischemic changes. Electronically signed by: Rosangela Burnette MD (08/20/2021 11:21 AM) [id number] DICTATED AND SIGNED BY: ROSANGELA BURNTETE MD DATE: 08/20/21 1118 CC: ISABEL CERRATO; ISABEL HUGHES DO ~ Heart Score: C/O Chest Pain: No Risk Factors: Risk Factors: DM, Current or recent (<one month) smoker, HTN, HLP, family h istory of CAD, obesity. Risk Scores: Score 0 - 3: 2.5% MACE over next 6 weeks - Discharge Home Score 4 - 6: 20.3% MACE over next 6 weeks - Admit for Clinical Observation Score 7 - 10: 72.7% MACE over next 6 weeks - Early Invasive Strategies Course & Med Decision Making: Course & Med Decision Making Pertinent Labs and Imaging studies reviewed. (See chart for details) Concern for speech changes, facial paresthesias and diaphoresis in the setting of hypoglycemia. Symptoms resolved within 30 minutes of onset. Patient denies any falls or trauma. Labs show chronic kidney disease. Patient had one episode of nausea emergency department. Now is tolerating oral intake. Is hemodynamically stable. Has no neurologic deficits and has decisional capacity. Patient feels well and has to be discharged home-criteria bedside and states patient is acting appropriately is her normal self. Patient with medical decision-making capacity. Will discharge home with strict ED return precautions were given for fever, confusion, head injury or neurologic deficits. Encouraged urgent outpatient follow-up with PMD for reevaluation. Life-threatening processes were considered but are low suspicion at this time, given history, physical exam and ED workup. Pt was educated on all prescription medications and adverse effects. All patient's questions were answered and pt was stable at time of discharge. Life/limb-threatening differential includes but is not limited to, end organ damage/sepsis, trauma/abuse/neglect, neurologic deficit, alcohol/drug ingestion, toxidrome, suicidal/homicidal ideations plans or attempts, psychosis or mental illness resulting in self neglect and inability to care for self. I have spoken with the patient and/or caregivers. I explained the patient's condition, diagnoses and treatment plan based on the information available to me at this time. I have answered the patient and/or caregiver's questions and addressed any concerns. The patient and/or caregivers have a good understanding of patient's diagnosis, condition and treatment plan as can be expected at this point. Vital signs have been stable. Patient's condition is stable and appropriate for discharge from the emergency department. Patient will pursue further outpatient evaluation with primary care physician or other designated or consulting physician as outlined in the discharge instructions. The patient and/or caregivers are agreeable to this plan of care and follow-up instructions have been explained in detail. The patient and/or caregivers have received these instructions in written form and have expressed an understanding of the discharge instructions. The patient and/or caregivers are aware that any significant change of condition or worsening of symptoms should prompt immediate return to this or the closest emergency department or call to 911. Kiko Disclaimer: Kiko Disclaimer: This electronic medical record was generated, in whole or in part, using a voice recognition dictation system. Departure Departure: Impression: Primary Impression: Hypoglycemia Additional Impression: Nausea Disposition: 01 HOME / SELF CARE / HOMELESS Condition: STABLE Referrals: ISABEL CERRATO (PCP) Follow up with your pcp in 1-[address] [facility] Streeter [phone] OR [facility]-Dr. Shanks [phone] Patient Instructions: Hypoglycemia (Low Blood Sugar), Nausea, Adult Additional Instructions: EMERGENCY DEPARTMENT GENERAL DISCHARGE INSTRUCTIONS Thank you for coming to [facility] (ED) today and trusting us with you care. We trust that you had a positivie experience in our Emergency Department. If you wish to speak to the department management, you may call the director at [phone]. YOUR FOLLOW UP INSTRUCTIONS ARE FOLLOWS: 1. Do you have a private Doctor? If you do not have a private doctor, please ask for a resource list of physicians or clinics that may be able to assist you with follow up care. 2. The Emergency Physician has interpreted your x-rays. The X-Ray specialist will also review them. If there is a change in the findings, you will be notified in 48 hours when at all possible. 3. A lab test or culture has been done, your results will be reviewed and you will be notified if you need a change in treatment. ADDITIONAL INSTRUCTIONS AND INFORMATION: 1. Your care today has been supervised by a physician who is specially trained in emergency care. Many problems require more than one evaluation for a complete diagnosis and treatment. We recommend that you schedule your follow up appointment as recommended to ensure complete treatment of you illness or injury. If you are unable to obtain follow up care and continue to have a problem, or if your condition worsens, we recommend that you return to the ED. 2. We are not able to safely determine your condition over the phone nor are we able to give sound medical advice over the phone. For these safety reasons, if you call for medical advice we will ask you to come to the ED for further evaluation. 3. If you have any questions regarding these discharge instructions please call the ED at [phone]. SAFETY INFORMATION: In the interest of safety, wellness, and injury prevention; we encourage you to wear your sealbelt, if you smoke; quite smoking, and we encourage family to use a protective helmet for bicycling and other sporting events that present an increased risk for head injury. IF YOUR SYMPTOMS WORSEN OR NEW SYMPTOMS DEVELOP, OR YOU HAVE CONCERNS ABOUT YOUR CONDITION; OR IF YOUR CONDITION WORSENS WHILE YOU ARE WAITING FOR YOUR FOLLOW UP APPOINTMENT; EITHER CONTACT YOUR PRIMARY CARE DOCTOR, THE PHYSICIAN WHOSE NAME AND NUMBER YOU WERE GIVEN, OR RETURN TO THE ED IMMEDIATELY. ISABEL HUGHES DO Aug 20, 2021 12:16
[2021-08-20 12:41] LABS: BASO # 0.1 x10^3/uL (0.0-0.2); BASO % 1 % (0-3); EOS # 0.1 x10^3/uL (0.0-0.7); EOS % 1 % (0-3); HEMATOCRIT 41.3 % (36.0-47.0); HEMOGLOBIN 13.2 g/dL (12.0-15.5); LYMPH # 0.9 x10^3/uL (1.0-4.8); LYMPH % 11 % (24-48); MEAN CORPUSCULAR HEMOGLOBIN 34 pg (25-35); MEAN CORPUSCULAR HGB CONC 32 g/dL (31-37); MEAN CORPUSCULAR VOLUME 104 fL (79-100); MONO # 0.4 x10^3/uL (0.0-1.1); MONO % 4 % (0-9); NEUT # 6.8 x10^3uL (1.8-7.7); NEUT % 83 % (31-73); PLATELET COUNT 143 x10^3/uL (140-400); RED BLOOD COUNT 3.96 x10^6/uL (3.50-5.40); RED CELL DISTRIBUTION WIDTH 13.5 % (11.5-14.5); WHITE BLOOD COUNT 8.3 x10^3/uL (4.0-11.0)
[2021-08-20 12:42] LABS: CALCIUM 8.7 mg/dL (8.5-10.1); CREATININE 1.7 mg/dL (0.6-1.0); GFR 28.5; POTASSIUM 4.6 mmol/L (3.5-5.1)
[2021-08-20 12:56] LABS: ALBUMIN 3.2 g/dL (3.4-5.0); DIRECT BILIRUBIN 0.1 mg/dL (0.0-0.2); MAGNESIUM 2.1 mg/dL (1.8-2.4); TOTAL BILIRUBIN 0.4 mg/dL (0.2-1.0); TOTAL PROTEIN 5.7 g/dL (6.4-8.2)
[2021-08-20 13:24] VITALS: BP 108/48
[2021-08-20 14:25] LABS: BARBITURATES NEG (NEG); BENZODIAZEPINES POS (NEG); CANNABINOIDS NEG (NEG); COCAINE NEG (NEG); METHADONE NEG (NEG); OPIATES NEG (NEG); PHENCYCLIDINE NEG (NEG)
[2021-08-20 14:28] LABS: AMPHETAMINE/METHAMPHETAMINE NEG (NEG)
[2021-08-20 14:41] LABS: BACTERIA,URINE FEW /HPF (0-FEW); CLARITY,URINE CLOUDY; COLOR,URINE YELLOW; GLUCOSE,URINE NEG (NEG); NITRITE,URINE NEG (NEG); RBC,URINE OCC /HPF (0-2); SQUAMOUS EPITHELIAL CELL,UR MANY /LPF; UROBILINOGEN,URINE 0.2 mg/dL (0.2 mg/dL)
== END 2021-08-20 14:21 | disposition home or self-care (01) ==
LOC: ER 10:47
DX: E11.649 Type 2 diabetes mellitus with hypoglycemia without coma (principal); R11.0 Nausea; I25.10 Atherosclerotic heart disease of native coronary artery without angina pectoris; I11.0 Hypertensive heart disease with heart failure; I50.9 Heart failure, unspecified; I25.2 Old myocardial infarction; F17.210 Nicotine dependence, cigarettes, uncomplicated; Z88.5 Allergy status to narcotic agent
CPT/HCPCS: 36415; 70450; 71045; 80048; 80076; 80307; 81001; 83605; 83735; 84484; 85025; 85610; 85730; 87040; 87086; 93005; 96360; 99285; G0480; J7030